=== PATIENT | female | born 1930 | race Asian ===

== ENCOUNTER 2017-06-19 16:01 | Inpatient (IN) | payer OTHER, MEDICARE ==
[2017-06-19 17:04] LABS: ADD MAN DIFF? NO
[2017-06-19 17:12] LABS: WHITE BLOOD COUNT 5.2 10^3/ul (4.8-10.8)
[2017-06-19 17:12] LABS: BASOPHILS % 0.4 % (0.0-2.0); EOSINOPHILS # 0.1 10^3/ul (0.0-0.5); EOSINOPHILS % 2.3 % (0.0-7.0); HEMATOCRIT 25.5 % (37.0-47.0); HEMOGLOBIN 8.2 g/dl (12.0-16.0); LYMPHOCYTES # 0.7 10^3/ul (0.8-2.9); LYMPHOCYTES % 14.1 % (15.0-51.0); MEAN CORPUSCULAR HEMOGLOBIN 31.2 pg (29.0-33.0); MEAN CORPUSCULAR HGB CONC 32.2 g/dl (32.0-37.0); MEAN PLATELET VOLUME 9.1 fl (7.4-10.4); MONOCYTE # 0.8 10^3/ul (0.3-0.9); MONOCYTES % 15.3 % (0.0-11.0); NEUTROPHIL # 3.5 10^3/ul (1.6-7.5); NEUTROPHILS % 67.5 % (39.0-77.0); PLATELET COUNT 230 10^3/UL (140-415); RED BLOOD COUNT 2.63 10^6/ul (4.20-5.40); RED CELL DISTRIBUTION WIDTH 17.3 % (11.5-14.5)
[2017-06-19 17:32] LABS: ANION GAP 14 (8-16); BLOOD UREA NITROGEN 29 mg/dl (7-20); CALCIUM 8.6 mg/dl (8.4-10.2); CARBON DIOXIDE 19 mmol/L (21-31); CHLORIDE 107 mmol/L (97-110); CREATININE 2.99 mg/dl (0.44-1.00); GLUCOSE 107 mg/dl (70-220); POTASSIUM 5.1 mmol/L (3.5-5.1); SODIUM 135 mmol/L (135-144)
[2017-06-19 17:44] LABS: B-TYPE NATRIURETIC PEPTIDE 12400 PG/ML (0-450)
[2017-06-19 17:49] LABS: TROPONIN-I 0.212 ng/ml (0.00-0.12)
[2017-06-19 17:57] LABS: ADD UMIC YES; UR ASCORBIC ACID NEGATIVE (NEGATIVE); UR BACTERIA FEW /HPF (NONE SEEN); UR BILIRUBIN (Dip) NEGATIVE (NEGATIVE); UR BLOOD (Dip) NEGATIVE (NEGATIVE); UR CLARITY CLEAR (CLEAR); UR COLOR YELLOW (YELLOW); UR GLUCOSE (Dip) NEGATIVE (NEGATIVE); UR KETONES (Dip) NEGATIVE (NEGATIVE); UR LEUKOCYTE ESTERASE (Dip) NEGATIVE Leu/ul (NEGATIVE); UR NITRITE (Dip) NEGATIVE (NEGATIVE); UR RBC 1 /HPF (0-5); UR SPECIFIC GRAVITY (Dip) 1.009 (1.003-1.030); UR SQUAMOUS EPITHELIAL CELL FEW /HPF (FEW); UR TOTAL PROTEIN (Dip) 2+ mg/dl (NEGATIVE); UR UROBILINOGEN (Dip) NEGATIVE (NEGATIVE); UR WBC 1 /HPF (0-5)
[2017-06-19] MEDS: IPRATROPIUM (NEB) 0.5 MG/2.5 ML AMP HHN (18:04)
[2017-06-19] MEDS: ALBUTEROL 0.083% (NEB) 2.5 MG/3 ML AMP HHN (18:04)
[2017-06-19] MEDS: ASPIRIN 81 MG TAB PO (18:12)
[2017-06-19] MEDS: HEPARIN 1000 UNITS/ML 10 ML INJ IV (18:13)
[2017-06-19] MEDS: FUROSEMIDE 40 MG INJ IV ×2 (18:14→23:48)
[2017-06-19] MEDS: HEPARIN 25000 UNITS/250 ML 250 ML IV (18:20)
[2017-06-19] MEDS ORDERED: ONDANSETRON 4 MG INJ IV (19:00)
[2017-06-19] MEDS: OXYCODONE/ACETAMINOPHEN (5/325) TAB PO (19:30)
[2017-06-19] MEDS: DICLOFENAC SODIUM 1% GEL 100 GM TUBE TP (19:30)
[2017-06-19] MEDS: BISACODYL 10 MG SUPP PR (19:30)
[2017-06-19] MEDS ORDERED: NITROGLYCERIN (SL) 0.4 MG TAB SL (19:30)
[2017-06-19] MEDS: GABAPENTIN 300 MG CAP PO (21:00)
[2017-06-19] MEDS: ATORVASTATIN 10 MG TAB PO (21:00)
[2017-06-19] MEDS: DOCUSATE SODIUM 100 MG CAP PO (21:00)
[2017-06-19] MEDS: PRAMIPEXOLE 0.25 MG TAB PO (21:00)
[2017-06-19] MEDS: SOD CHLORIDE 0.9% 250 ML IV (21:10)
[2017-06-19 23:35] LABS: CREATINE KINASE 304 IU/L (23-200)
[2017-06-19 23:48] LABS: CK-MB 2.96 ng/ml (0.0-2.4)
[2017-06-19 23:52] LABS: TROPONIN-I 0.158 ng/ml (0.00-0.12)
[2017-06-20] MEDS: OXYCODONE/ACETAMINOPHEN (5/325) TAB PO ×5 (01:30→21:00)
[2017-06-20] MEDS: ALBUTEROL/IPRATROPIUM (NEB) 3 ML AMP NEB ×2 (04:40→10:18)
[2017-06-20] MEDS: FUROSEMIDE 40 MG INJ IV ×2 (06:33→17:28)
[2017-06-20] MEDS: TAMSULOSIN (SR) 0.4 MG CAP PO (07:52)
[2017-06-20] MEDS: ASPIRIN (EC) 325 MG TAB PO (08:54)
[2017-06-20] MEDS: FERROUS SULFATE (EC) 325 MG TAB PO (08:55)
[2017-06-20] MEDS: ALLOPURINOL 100 MG TAB PO (08:55)
[2017-06-20] MEDS: PANTOPRAZOLE (EC) 40 MG TAB PO (08:55)
[2017-06-20] MEDS: FISH OIL 1,000 MG CAP PO (08:55)
[2017-06-20] MEDS: DOCUSATE SODIUM 100 MG CAP PO ×2 (08:55→20:59)
[2017-06-20 09:25] LABS: ADD MAN DIFF? NO
[2017-06-20 09:31] LABS: WHITE BLOOD COUNT 5.3 10^3/ul (4.8-10.8)
[2017-06-20 09:31] LABS: BASOPHILS % 0.6 % (0.0-2.0); EOSINOPHILS # 0.4 10^3/ul (0.0-0.5); HEMATOCRIT 27.7 % (37.0-47.0); HEMOGLOBIN 8.7 g/dl (12.0-16.0); LYMPHOCYTES # 1.1 10^3/ul (0.8-2.9); MEAN CORPUSCULAR HEMOGLOBIN 31.3 pg (29.0-33.0); MEAN CORPUSCULAR HGB CONC 31.4 g/dl (32.0-37.0); MEAN CORPUSCULAR VOLUME 99.6 fl (82.0-101.0); MEAN PLATELET VOLUME 8.9 fl (7.4-10.4); MONOCYTE # 0.9 10^3/ul (0.3-0.9); MONOCYTES % 16.4 % (0.0-11.0); NEUTROPHIL # 2.9 10^3/ul (1.6-7.5); NEUTROPHILS % 54.8 % (39.0-77.0); PLATELET COUNT 216 10^3/UL (140-415); RED BLOOD COUNT 2.78 10^6/ul (4.20-5.40); RED CELL DISTRIBUTION WIDTH 17.5 % (11.5-14.5)
[2017-06-20 09:51] LABS: ALANINE AMINOTRANSFERASE 122 IU/L (13-69); ALBUMIN 3.7 g/dl (3.3-4.9); ALBUMIN/GLOBULIN RATIO 1.48; ALKALINE PHOSPHATASE 91 IU/L (42-121); ANION GAP 18 (8-16); ASPARTATE AMINO TRANSFERASE 135 IU/L (15-46); BLOOD UREA NITROGEN 31 mg/dl (7-20); CALCIUM 8.8 mg/dl (8.4-10.2); CARBON DIOXIDE 19 mmol/L (21-31); CHLORIDE 107 mmol/L (97-110); CREATININE 3.31 mg/dl (0.44-1.00); GLUCOSE 93 mg/dl (70-220); POTASSIUM 4.9 mmol/L (3.5-5.1); SODIUM 139 mmol/L (135-144); TOTAL PROTEIN 6.2 g/dl (6.1-8.1)
[2017-06-20 09:52] LABS: CREATINE KINASE 339 IU/L (23-200)
[2017-06-20 10:03] LABS: CK INDEX 1.2; CK-MB 4.01 ng/ml (0.0-2.4); TROPONIN-I 0.095 ng/ml (0.00-0.12)
[2017-06-20 10:30] LABS: CHOL/HDL RATIO 1.6 RATIO; HDL CHOLESTEROL 76 mg/dl (33-92); LDL CHOLESTEROL,CALCULATED 41 mg/dl; TRIGLYCERIDES 54 mg/dl (0-149)
[2017-06-20 10:30] LABS: CHOLESTEROL 128 mg/dl (100-200)
[2017-06-20] MEDS: DICLOFENAC SODIUM 1% GEL 100 GM TUBE TP (11:52)
[2017-06-20] MEDS ORDERED: traMADol 50 MG TAB PO (13:00)
[2017-06-20] MEDS: EPOETIN 10000 UNITS/1 ML INJ (ESRD) SC (13:17)
[2017-06-20] MEDS: ALBUTEROL/IPRATROPIUM (NEB) 3 ML AMP HHN ×2 (14:07→20:04)
[2017-06-20] MEDS: ATORVASTATIN 10 MG TAB PO (20:59)
[2017-06-20] MEDS: GABAPENTIN 300 MG CAP PO (20:59)
[2017-06-20] MEDS: PRAMIPEXOLE 0.25 MG TAB PO (20:59)
[2017-06-21 05:16] LABS: ADD MAN DIFF? NO
[2017-06-21 05:18] LABS: WHITE BLOOD COUNT 10.4 10^3/ul (4.8-10.8)
[2017-06-21 05:18] LABS: BASOPHILS % 0.2 % (0.0-2.0); EOSINOPHILS # 0.3 10^3/ul (0.0-0.5); EOSINOPHILS % 2.4 % (0.0-7.0); HEMATOCRIT 29.6 % (37.0-47.0); HEMOGLOBIN 9.3 g/dl (12.0-16.0); LYMPHOCYTES # 1.2 10^3/ul (0.8-2.9); LYMPHOCYTES % 11.9 % (15.0-51.0); MEAN CORPUSCULAR HEMOGLOBIN 30.9 pg (29.0-33.0); MEAN CORPUSCULAR HGB CONC 31.4 g/dl (32.0-37.0); MEAN CORPUSCULAR VOLUME 98.3 fl (82.0-101.0); MEAN PLATELET VOLUME 8.7 fl (7.4-10.4); MONOCYTE # 0.9 10^3/ul (0.3-0.9); MONOCYTES % 9.1 % (0.0-11.0); NEUTROPHIL # 7.9 10^3/ul (1.6-7.5); NEUTROPHILS % 76.1 % (39.0-77.0); PLATELET COUNT 250 10^3/UL (140-415); RED BLOOD COUNT 3.01 10^6/ul (4.20-5.40); RED CELL DISTRIBUTION WIDTH 17.3 % (11.5-14.5)
[2017-06-21 06:01] LABS: ANION GAP 20 (8-16); BLOOD UREA NITROGEN 36 mg/dl (7-20); CALCIUM 8.6 mg/dl (8.4-10.2); CARBON DIOXIDE 20 mmol/L (21-31); CHLORIDE 105 mmol/L (97-110); CREATININE 3.55 mg/dl (0.44-1.00); GLUCOSE 95 mg/dl (70-220); POTASSIUM 5.4 mmol/L (3.5-5.1); SODIUM 140 mmol/L (135-144)
[2017-06-21] MEDS: LEVOTHYROXINE 50 MCG TAB PO (06:02)
[2017-06-21] MEDS: FUROSEMIDE 40 MG INJ IV (06:02)
[2017-06-21] MEDS: ALBUTEROL/IPRATROPIUM (NEB) 3 ML AMP HHN ×3 (07:58→19:44)
[2017-06-21] MEDS: TAMSULOSIN (SR) 0.4 MG CAP PO (08:30)
[2017-06-21] MEDS: FERROUS SULFATE (EC) 325 MG TAB PO (08:38)
[2017-06-21] MEDS: FISH OIL 1,000 MG CAP PO (08:38)
[2017-06-21] MEDS: ALLOPURINOL 100 MG TAB PO ×2 (08:38→09:00)
[2017-06-21] MEDS: DOCUSATE SODIUM 100 MG CAP PO ×2 (08:38→20:29)
[2017-06-21] MEDS: ASPIRIN (EC) 325 MG TAB PO (08:38)
[2017-06-21] MEDS: PANTOPRAZOLE (EC) 40 MG TAB PO (08:38)
[2017-06-21] MEDS: OXYCODONE/ACETAMINOPHEN (5/325) TAB PO ×4 (08:39→20:28)
[2017-06-21 08:47] LABS: CREATINE KINASE 252 IU/L (23-200)
[2017-06-21 08:59] LABS: CK INDEX 1.2; CK-MB 2.99 ng/ml (0.0-2.4); TROPONIN-I 0.072 ng/ml (0.00-0.12)
[2017-06-21] MEDS ORDERED: FUROSEMIDE 40 MG INJ IV (09:00)
[2017-06-21] MEDS: NA POLYST SULFON 15 GM/60 ML BTL PR (09:42)
[2017-06-21] MEDS: LACTULOSE 30ML CUP PO (13:40)
[2017-06-21] MEDS: NITROGLYCERIN (SL) 0.4 MG TAB SL (18:01)
[2017-06-21 19:13] LABS: ANION GAP 19 (8-16); BLOOD UREA NITROGEN 38 mg/dl (7-20); CALCIUM 8.4 mg/dl (8.4-10.2); CARBON DIOXIDE 21 mmol/L (21-31); CHLORIDE 104 mmol/L (97-110); CREATININE 3.56 mg/dl (0.44-1.00); GLUCOSE 104 mg/dl (70-220); POTASSIUM 4.4 mmol/L (3.5-5.1); SODIUM 140 mmol/L (135-144)
[2017-06-21] MEDS: BISACODYL 10 MG SUPP PR (19:30)
[2017-06-21] MEDS: PRAMIPEXOLE 0.25 MG TAB PO (20:28)
[2017-06-21] MEDS: GABAPENTIN 300 MG CAP PO (20:29)
[2017-06-21] MEDS: ATORVASTATIN 10 MG TAB PO (20:29)
[2017-06-22] MEDS: OXYCODONE/ACETAMINOPHEN (5/325) TAB PO ×5 (01:30→20:55)
[2017-06-22] MEDS: LEVOTHYROXINE 50 MCG TAB PO (06:09)
[2017-06-22] MEDS ORDERED: VITAMIN A & D 5 GM OINT PACKET TOP (07:38)
[2017-06-22] MEDS: FERROUS SULFATE (EC) 325 MG TAB PO (09:12)
[2017-06-22] MEDS: ASPIRIN (EC) 325 MG TAB PO (09:12)
[2017-06-22] MEDS: TAMSULOSIN (SR) 0.4 MG CAP PO (09:12)
[2017-06-22] MEDS: DOCUSATE SODIUM 100 MG CAP PO ×2 (09:12→20:40)
[2017-06-22] MEDS: ALLOPURINOL 100 MG TAB PO (09:13)
[2017-06-22] MEDS: FISH OIL 1,000 MG CAP PO (09:13)
[2017-06-22] MEDS: PANTOPRAZOLE (EC) 40 MG TAB PO (09:13)
[2017-06-22] MEDS: ALBUTEROL/IPRATROPIUM (NEB) 3 ML AMP HHN ×3 (09:34→19:46)
[2017-06-22] MEDS: MUPIROCIN 2% 22 GM OINT TOP ×2 (14:40→20:39)
[2017-06-22] MEDS: ACETAMINOPHEN 325 MG TAB PO (19:51)
[2017-06-22] MEDS: GABAPENTIN 300 MG CAP PO (20:39)
[2017-06-22] MEDS: PRAMIPEXOLE 0.25 MG TAB PO (20:39)
[2017-06-22] MEDS: ATORVASTATIN 10 MG TAB PO (20:40)
[2017-06-22] MEDS: METOPROLOL 25 MG TAB PO (20:42)
[2017-06-22] MEDS: GUAIFENESIN/DM 5ML CUP PO (20:56)
[2017-06-23] MEDS: LEVOTHYROXINE 50 MCG TAB PO (05:38)
[2017-06-23 08:06] LABS: ADD MAN DIFF? NO
[2017-06-23 08:12] LABS: BASOPHILS % 0.1 % (0.0-2.0); EOSINOPHILS # 0.3 10^3/ul (0.0-0.5); EOSINOPHILS % 3.9 % (0.0-7.0); HEMOGLOBIN 9.3 g/dl (12.0-16.0); LYMPHOCYTES # 1.1 10^3/ul (0.8-2.9); MEAN CORPUSCULAR HEMOGLOBIN 30.8 pg (29.0-33.0); MEAN CORPUSCULAR HGB CONC 32.1 g/dl (32.0-37.0); MEAN PLATELET VOLUME 9.1 fl (7.4-10.4); MONOCYTES % 13.8 % (0.0-11.0); NEUTROPHIL # 4.6 10^3/ul (1.6-7.5); NEUTROPHILS % 65.8 % (39.0-77.0); PLATELET COUNT 241 10^3/UL (140-415); RED BLOOD COUNT 3.02 10^6/ul (4.20-5.40); RED CELL DISTRIBUTION WIDTH 16.5 % (11.5-14.5)
[2017-06-23 08:12] LABS: WHITE BLOOD COUNT 6.9 10^3/ul (4.8-10.8)
[2017-06-23] MEDS: DOCUSATE SODIUM 100 MG CAP PO ×2 (08:33→21:33)
[2017-06-23] MEDS: MUPIROCIN 2% 22 GM OINT TOP ×2 (08:33→21:00)
[2017-06-23] MEDS: OXYCODONE/ACETAMINOPHEN (5/325) TAB PO ×3 (08:33→21:33)
[2017-06-23] MEDS: PANTOPRAZOLE (EC) 40 MG TAB PO (08:33)
[2017-06-23] MEDS: TAMSULOSIN (SR) 0.4 MG CAP PO (08:34)
[2017-06-23] MEDS: ASPIRIN (EC) 325 MG TAB PO (08:34)
[2017-06-23] MEDS: FERROUS SULFATE (EC) 325 MG TAB PO (08:34)
[2017-06-23] MEDS: FISH OIL 1,000 MG CAP PO (08:34)
[2017-06-23] MEDS: ALLOPURINOL 100 MG TAB PO (08:34)
[2017-06-23] MEDS: METOPROLOL 25 MG TAB PO ×2 (08:34→21:34)
[2017-06-23] MEDS: GUAIFENESIN/DM 5ML CUP PO ×2 (08:39→21:34)
[2017-06-23 08:46] LABS: ANION GAP 18 (8-16); BLOOD UREA NITROGEN 36 mg/dl (7-20); CALCIUM 8.5 mg/dl (8.4-10.2); CARBON DIOXIDE 19 mmol/L (21-31); CHLORIDE 105 mmol/L (97-110); CREATININE 3.19 mg/dl (0.44-1.00); GLUCOSE 98 mg/dl (70-220); POTASSIUM 4.1 mmol/L (3.5-5.1); SODIUM 138 mmol/L (135-144)
[2017-06-23] MEDS: ALBUTEROL/IPRATROPIUM (NEB) 3 ML AMP HHN ×3 (08:52→19:38)
[2017-06-23] MEDS: BISACODYL 10 MG SUPP PR (19:30)
[2017-06-23] MEDS ORDERED: INFLUENZA VIRUS VACCINE 0.5 ML SYG IM* (20:00)
[2017-06-23] MEDS: PRAMIPEXOLE 0.25 MG TAB PO (21:33)
[2017-06-23] MEDS: GABAPENTIN 300 MG CAP PO (21:33)
[2017-06-23] MEDS: ATORVASTATIN 10 MG TAB PO (21:33)
[2017-06-24] MEDS: OXYCODONE/ACETAMINOPHEN (5/325) TAB PO ×4 (01:30→20:45)
[2017-06-24] MEDS: LEVOTHYROXINE 50 MCG TAB PO (05:51)
[2017-06-24 07:55] LABS: ADD MAN DIFF? NO
[2017-06-24 08:13] LABS: WHITE BLOOD COUNT 6.9 10^3/ul (4.8-10.8)
[2017-06-24 08:13] LABS: BASOPHILS % 0.4 % (0.0-2.0); EOSINOPHILS # 0.3 10^3/ul (0.0-0.5); EOSINOPHILS % 4.1 % (0.0-7.0); HEMATOCRIT 28.2 % (37.0-47.0); LYMPHOCYTES # 1.3 10^3/ul (0.8-2.9); LYMPHOCYTES % 19.5 % (15.0-51.0); MEAN CORPUSCULAR HEMOGLOBIN 30.8 pg (29.0-33.0); MEAN CORPUSCULAR HGB CONC 31.9 g/dl (32.0-37.0); MEAN CORPUSCULAR VOLUME 96.6 fl (82.0-101.0); MEAN PLATELET VOLUME 9.1 fl (7.4-10.4); MONOCYTE # 0.8 10^3/ul (0.3-0.9); MONOCYTES % 12.2 % (0.0-11.0); NEUTROPHIL # 4.4 10^3/ul (1.6-7.5); NEUTROPHILS % 63.5 % (39.0-77.0); PLATELET COUNT 230 10^3/UL (140-415); RED BLOOD COUNT 2.92 10^6/ul (4.20-5.40); RED CELL DISTRIBUTION WIDTH 16.4 % (11.5-14.5)
[2017-06-24 08:18] LABS: ANION GAP 16 (8-16); BLOOD UREA NITROGEN 35 mg/dl (7-20); CALCIUM 8.5 mg/dl (8.4-10.2); CARBON DIOXIDE 21 mmol/L (21-31); CHLORIDE 109 mmol/L (97-110); CREATININE 3.02 mg/dl (0.44-1.00); GLUCOSE 90 mg/dl (70-220); POTASSIUM 3.9 mmol/L (3.5-5.1); SODIUM 142 mmol/L (135-144)
[2017-06-24] MEDS: ALBUTEROL/IPRATROPIUM (NEB) 3 ML AMP HHN ×3 (08:30→20:04)
[2017-06-24] MEDS: METOPROLOL 25 MG TAB PO ×2 (08:40→20:46)
[2017-06-24] MEDS: DOCUSATE SODIUM 100 MG CAP PO ×2 (08:41→20:45)
[2017-06-24] MEDS: FERROUS SULFATE (EC) 325 MG TAB PO (08:41)
[2017-06-24] MEDS: ALLOPURINOL 100 MG TAB PO (08:41)
[2017-06-24] MEDS: PANTOPRAZOLE (EC) 40 MG TAB PO (08:41)
[2017-06-24] MEDS: ASPIRIN (EC) 325 MG TAB PO (08:41)
[2017-06-24] MEDS: FISH OIL 1,000 MG CAP PO (08:42)
[2017-06-24] MEDS: TAMSULOSIN (SR) 0.4 MG CAP PO (08:42)
[2017-06-24] MEDS: INFLUENZA VIRUS VACCINE 0.5 ML (DISPENSING) IM* (08:43)
[2017-06-24] MEDS: MUPIROCIN 2% 22 GM OINT TOP ×2 (08:44→20:49)
[2017-06-24] MEDS: REGADENOSON 0.4 MG/5 ML SYG ×2 (10:18→10:50)
[2017-06-24] MEDS: GUAIFENESIN/DM 5ML CUP PO (18:01)
[2017-06-24] MEDS: ATORVASTATIN 10 MG TAB PO (20:45)
[2017-06-24] MEDS: GABAPENTIN 300 MG CAP PO (20:45)
[2017-06-24] MEDS: PRAMIPEXOLE 0.25 MG TAB PO (20:46)
[2017-06-25] MEDS: OXYCODONE/ACETAMINOPHEN (5/325) TAB PO ×5 (01:30→20:10)
[2017-06-25] MEDS: LEVOTHYROXINE 50 MCG TAB PO (06:24)
[2017-06-25] MEDS: GUAIFENESIN/DM 5ML CUP PO ×2 (06:31→17:23)
[2017-06-25] MEDS: ALBUTEROL/IPRATROPIUM (NEB) 3 ML AMP HHN ×3 (07:34→20:46)
[2017-06-25 08:31] LABS: ADD MAN DIFF? NO
[2017-06-25 08:36] LABS: BASOPHILS % 0.3 % (0.0-2.0); EOSINOPHILS # 0.4 10^3/ul (0.0-0.5); EOSINOPHILS % 5.9 % (0.0-7.0); HEMATOCRIT 28.7 % (37.0-47.0); HEMOGLOBIN 8.9 g/dl (12.0-16.0); LYMPHOCYTES # 1.3 10^3/ul (0.8-2.9); LYMPHOCYTES % 19.9 % (15.0-51.0); MEAN CORPUSCULAR HEMOGLOBIN 30.6 pg (29.0-33.0); MEAN CORPUSCULAR VOLUME 98.6 fl (82.0-101.0); MEAN PLATELET VOLUME 9.1 fl (7.4-10.4); MONOCYTE # 0.7 10^3/ul (0.3-0.9); MONOCYTES % 10.6 % (0.0-11.0); PLATELET COUNT 236 10^3/UL (140-415); RED BLOOD COUNT 2.91 10^6/ul (4.20-5.40); RED CELL DISTRIBUTION WIDTH 16.6 % (11.5-14.5)
[2017-06-25 08:36] LABS: WHITE BLOOD COUNT 6.3 10^3/ul (4.8-10.8)
[2017-06-25] MEDS: ASPIRIN (EC) 325 MG TAB PO (08:39)
[2017-06-25] MEDS: FISH OIL 1,000 MG CAP PO (08:39)
[2017-06-25] MEDS: TAMSULOSIN (SR) 0.4 MG CAP PO (08:40)
[2017-06-25] MEDS: DOCUSATE SODIUM 100 MG CAP PO ×2 (08:40→20:09)
[2017-06-25] MEDS: PANTOPRAZOLE (EC) 40 MG TAB PO (08:40)
[2017-06-25] MEDS: FERROUS SULFATE (EC) 325 MG TAB PO (08:40)
[2017-06-25] MEDS: MUPIROCIN 2% 22 GM OINT TOP ×2 (08:41→20:10)
[2017-06-25] MEDS: ALLOPURINOL 100 MG TAB PO (08:41)
[2017-06-25] MEDS: METOPROLOL 25 MG TAB PO ×2 (08:42→20:09)
[2017-06-25 08:56] LABS: ANION GAP 15 (8-16); BLOOD UREA NITROGEN 33 mg/dl (7-20); CALCIUM 8.7 mg/dl (8.4-10.2); CARBON DIOXIDE 22 mmol/L (21-31); CHLORIDE 111 mmol/L (97-110); CREATININE 3.04 mg/dl (0.44-1.00); GLUCOSE 101 mg/dl (70-220); SODIUM 144 mmol/L (135-144)
[2017-06-25] MEDS: EPOETIN ALFA (NESRD) 3,000 UNITS/ML VIAL SC (16:47)
[2017-06-25] MEDS: ATORVASTATIN 10 MG TAB PO (20:09)
[2017-06-25] MEDS: PRAMIPEXOLE 0.25 MG TAB PO (20:10)
[2017-06-25] MEDS: BISACODYL 10 MG SUPP PR (20:10)
[2017-06-25] MEDS: GABAPENTIN 300 MG CAP PO (20:10)
[2017-06-26] MEDS: OXYCODONE/ACETAMINOPHEN (5/325) TAB PO ×4 (01:30→20:07)
[2017-06-26] MEDS: ONDANSETRON 4 MG INJ IV (06:17)
[2017-06-26] MEDS: LEVOTHYROXINE 50 MCG TAB PO (06:17)
[2017-06-26 07:24] LABS: ADD MAN DIFF? NO
[2017-06-26 07:28] LABS: BASOPHILS % 0.3 % (0.0-2.0); EOSINOPHILS # 0.4 10^3/ul (0.0-0.5); EOSINOPHILS % 6.4 % (0.0-7.0); HEMATOCRIT 27.6 % (37.0-47.0); HEMOGLOBIN 8.8 g/dl (12.0-16.0); LYMPHOCYTES # 1.3 10^3/ul (0.8-2.9); LYMPHOCYTES % 21.8 % (15.0-51.0); MEAN CORPUSCULAR HEMOGLOBIN 30.9 pg (29.0-33.0); MEAN CORPUSCULAR HGB CONC 31.9 g/dl (32.0-37.0); MEAN CORPUSCULAR VOLUME 96.8 fl (82.0-101.0); MONOCYTE # 0.7 10^3/ul (0.3-0.9); MONOCYTES % 11.7 % (0.0-11.0); NEUTROPHIL # 3.6 10^3/ul (1.6-7.5); NEUTROPHILS % 59.5 % (39.0-77.0); PLATELET COUNT 241 10^3/UL (140-415); RED BLOOD COUNT 2.85 10^6/ul (4.20-5.40); RED CELL DISTRIBUTION WIDTH 16.2 % (11.5-14.5)
[2017-06-26 07:50] LABS: ANION GAP 15 (8-16); BLOOD UREA NITROGEN 33 mg/dl (7-20); CALCIUM 8.6 mg/dl (8.4-10.2); CARBON DIOXIDE 20 mmol/L (21-31); CHLORIDE 110 mmol/L (97-110); CREATININE 2.62 mg/dl (0.44-1.00); GLUCOSE 87 mg/dl (70-220); SODIUM 141 mmol/L (135-144)
[2017-06-26] MEDS: ALBUTEROL/IPRATROPIUM (NEB) 3 ML AMP HHN ×3 (08:13→20:36)
[2017-06-26] MEDS: FISH OIL 1,000 MG CAP PO (08:41)
[2017-06-26] MEDS: ALLOPURINOL 100 MG TAB PO (08:41)
[2017-06-26] MEDS: TAMSULOSIN (SR) 0.4 MG CAP PO (08:41)
[2017-06-26] MEDS: ASPIRIN (EC) 325 MG TAB PO (08:41)
[2017-06-26] MEDS: PANTOPRAZOLE (EC) 40 MG TAB PO (08:42)
[2017-06-26] MEDS: DOCUSATE SODIUM 100 MG CAP PO ×2 (08:42→20:08)
[2017-06-26] MEDS: FERROUS SULFATE (EC) 325 MG TAB PO (08:42)
[2017-06-26] MEDS: METOPROLOL 25 MG TAB PO ×2 (08:43→20:08)
[2017-06-26] MEDS: MUPIROCIN 2% 22 GM OINT TOP ×2 (08:44→20:09)
[2017-06-26] MEDS: GUAIFENESIN/DM 5ML CUP PO (08:48)
[2017-06-26 17:44] LABS: COLLECTION PERIOD 24 hrs
[2017-06-26 18:35] LABS: VOLUME 650 mls
[2017-06-26 18:37] LABS: 24HR URINE TOTAL PROTEIN > 600.0 mg/24hrs (42.0-225.0)
[2017-06-26] MEDS: PRAMIPEXOLE 0.25 MG TAB PO (20:07)
[2017-06-26] MEDS: GABAPENTIN 300 MG CAP PO (20:07)
[2017-06-26] MEDS: ATORVASTATIN 10 MG TAB PO (20:07)
[2017-06-27] MEDS: OXYCODONE/ACETAMINOPHEN (5/325) TAB PO ×3 (01:30→13:20)
[2017-06-27] MEDS: LEVOTHYROXINE 50 MCG TAB PO (06:30)
[2017-06-27] MEDS: ALBUTEROL/IPRATROPIUM (NEB) 3 ML AMP HHN ×3 (07:58→20:22)
[2017-06-27] MEDS: PANTOPRAZOLE (EC) 40 MG TAB PO (08:37)
[2017-06-27] MEDS: FISH OIL 1,000 MG CAP PO (08:38)
[2017-06-27] MEDS: FERROUS SULFATE (EC) 325 MG TAB PO (08:38)
[2017-06-27] MEDS: DOCUSATE SODIUM 100 MG CAP PO ×2 (08:40→22:22)
[2017-06-27] MEDS: ALLOPURINOL 100 MG TAB PO (08:40)
[2017-06-27] MEDS: ASPIRIN (EC) 325 MG TAB PO (08:40)
[2017-06-27] MEDS: TAMSULOSIN (SR) 0.4 MG CAP PO (08:40)
[2017-06-27] MEDS: METOPROLOL 25 MG TAB PO ×2 (08:40→22:23)
[2017-06-27] MEDS: MUPIROCIN 2% 22 GM OINT TOP ×2 (08:41→22:24)
[2017-06-27] MEDS ORDERED: OXYCODONE/ACETAMINOPHEN (5/325) TAB PO (15:00)
[2017-06-27] MEDS: BISACODYL 10 MG SUPP PR (18:31)
[2017-06-27] MEDS: GUAIFENESIN/DM 5ML CUP PO ×2 (19:01→23:12)
[2017-06-27] MEDS: ATORVASTATIN 10 MG TAB PO (22:22)
[2017-06-27] MEDS: GABAPENTIN 300 MG CAP PO (22:23)
[2017-06-27] MEDS: PRAMIPEXOLE 0.25 MG TAB PO (22:23)
[2017-06-28] MEDS: GUAIFENESIN/DM 5ML CUP PO ×3 (05:23→20:22)
[2017-06-28] MEDS: LEVOTHYROXINE 50 MCG TAB PO (05:23)
[2017-06-28 06:44] LABS: ADD MAN DIFF? NO
[2017-06-28 06:46] LABS: BASOPHILS % 0.6 % (0.0-2.0); EOSINOPHILS # 0.3 10^3/ul (0.0-0.5); EOSINOPHILS % 6.6 % (0.0-7.0); HEMATOCRIT 27.3 % (37.0-47.0); HEMOGLOBIN 8.6 g/dl (12.0-16.0); LYMPHOCYTES # 1.1 10^3/ul (0.8-2.9); LYMPHOCYTES % 21.9 % (15.0-51.0); MEAN CORPUSCULAR HEMOGLOBIN 30.2 pg (29.0-33.0); MEAN CORPUSCULAR HGB CONC 31.5 g/dl (32.0-37.0); MEAN CORPUSCULAR VOLUME 95.8 fl (82.0-101.0); MONOCYTE # 0.5 10^3/ul (0.3-0.9); MONOCYTES % 10.5 % (0.0-11.0); NEUTROPHILS % 59.6 % (39.0-77.0); PLATELET COUNT 245 10^3/UL (140-415); RED BLOOD COUNT 2.85 10^6/ul (4.20-5.40); RED CELL DISTRIBUTION WIDTH 15.8 % (11.5-14.5)
[2017-06-28 07:07] LABS: ANION GAP 16 (8-16); BLOOD UREA NITROGEN 31 mg/dl (7-20); CALCIUM 8.6 mg/dl (8.4-10.2); CARBON DIOXIDE 19 mmol/L (21-31); CHLORIDE 109 mmol/L (97-110); CREATININE 2.77 mg/dl (0.44-1.00); GLUCOSE 116 mg/dl (70-220); POTASSIUM 4.4 mmol/L (3.5-5.1); SODIUM 140 mmol/L (135-144)
[2017-06-28] MEDS: ALBUTEROL/IPRATROPIUM (NEB) 3 ML AMP HHN ×4 (08:17→20:27)
[2017-06-28] MEDS: ALLOPURINOL 100 MG TAB PO (08:51)
[2017-06-28] MEDS: AMLODIPINE 2.5 MG TAB PO (08:51)
[2017-06-28] MEDS: TAMSULOSIN (SR) 0.4 MG CAP PO (08:51)
[2017-06-28] MEDS: FISH OIL 1,000 MG CAP PO (08:51)
[2017-06-28] MEDS: PANTOPRAZOLE (EC) 40 MG TAB PO (08:52)
[2017-06-28] MEDS: ASPIRIN (EC) 325 MG TAB PO (08:52)
[2017-06-28] MEDS: FUROSEMIDE 20 MG TAB PO (08:53)
[2017-06-28] MEDS: FERROUS SULFATE (EC) 325 MG TAB PO (08:53)
[2017-06-28] MEDS: METOPROLOL 25 MG TAB PO ×2 (09:00→20:22)
[2017-06-28] MEDS: DOCUSATE SODIUM 100 MG CAP PO ×2 (09:04→20:22)
[2017-06-28] MEDS: MUPIROCIN 2% 22 GM OINT TOP ×2 (09:06→20:22)
[2017-06-28] MEDS ORDERED: ALBUTEROL/IPRATROPIUM (NEB) 3 ML AMP HHN (13:30)
[2017-06-28] MEDS ORDERED: hydrALAzine 20 MG INJ IV (17:00)
[2017-06-28] MEDS: BISACODYL 10 MG SUPP PR (17:32)
[2017-06-28] MEDS: EPOETIN ALFA (NESRD) 3,000 UNITS/ML VIAL SC (17:32)
[2017-06-28] MEDS: GABAPENTIN 300 MG CAP PO (20:22)
[2017-06-28] MEDS: PRAMIPEXOLE 0.25 MG TAB PO (20:22)
[2017-06-28] MEDS: ATORVASTATIN 10 MG TAB PO (20:22)
[2017-06-29] MEDS: GUAIFENESIN/DM 5ML CUP PO ×2 (06:12→23:51)
[2017-06-29] MEDS: LEVOTHYROXINE 50 MCG TAB PO (06:12)
[2017-06-29 07:18] LABS: ADD MAN DIFF? NO
[2017-06-29 07:24] LABS: BASOPHILS % 0.4 % (0.0-2.0); EOSINOPHILS # 0.4 10^3/ul (0.0-0.5); EOSINOPHILS % 5.8 % (0.0-7.0); HEMATOCRIT 28.9 % (37.0-47.0); HEMOGLOBIN 9.2 g/dl (12.0-16.0); LYMPHOCYTES # 1.2 10^3/ul (0.8-2.9); LYMPHOCYTES % 16.4 % (15.0-51.0); MEAN CORPUSCULAR HEMOGLOBIN 30.6 pg (29.0-33.0); MEAN CORPUSCULAR HGB CONC 31.8 g/dl (32.0-37.0); MONOCYTE # 0.6 10^3/ul (0.3-0.9); MONOCYTES % 8.1 % (0.0-11.0); NEUTROPHIL # 4.8 10^3/ul (1.6-7.5); NEUTROPHILS % 68.7 % (39.0-77.0); PLATELET COUNT 286 10^3/UL (140-415); RED BLOOD COUNT 3.01 10^6/ul (4.20-5.40); RED CELL DISTRIBUTION WIDTH 15.9 % (11.5-14.5)
[2017-06-29 07:56] LABS: ANION GAP 14 (8-16); BLOOD UREA NITROGEN 32 mg/dl (7-20); CALCIUM 8.9 mg/dl (8.4-10.2); CARBON DIOXIDE 21 mmol/L (21-31); CHLORIDE 107 mmol/L (97-110); CREATININE 2.58 mg/dl (0.44-1.00); GLUCOSE 117 mg/dl (70-220); POTASSIUM 4.2 mmol/L (3.5-5.1); SODIUM 138 mmol/L (135-144)
[2017-06-29] MEDS: FERROUS SULFATE (EC) 325 MG TAB PO (08:24)
[2017-06-29] MEDS: PANTOPRAZOLE (EC) 40 MG TAB PO (08:24)
[2017-06-29] MEDS: FISH OIL 1,000 MG CAP PO (08:24)
[2017-06-29] MEDS: METOPROLOL 25 MG TAB PO ×2 (08:25→21:43)
[2017-06-29] MEDS: AMLODIPINE 2.5 MG TAB PO (08:25)
[2017-06-29] MEDS: ALLOPURINOL 100 MG TAB PO (08:25)
[2017-06-29] MEDS: TAMSULOSIN (SR) 0.4 MG CAP PO (08:25)
[2017-06-29] MEDS: DOCUSATE SODIUM 100 MG CAP PO ×2 (08:25→21:40)
[2017-06-29] MEDS: ASPIRIN (EC) 325 MG TAB PO (08:26)
[2017-06-29] MEDS: MUPIROCIN 2% 22 GM OINT TOP ×2 (08:26→21:44)
[2017-06-29] MEDS: FUROSEMIDE 20 MG TAB PO (08:26)
[2017-06-29 08:32] LABS: CREATININE,URINE RANDOM 29.21 mg/dl (20-320)
[2017-06-29] MEDS: ALBUTEROL/IPRATROPIUM (NEB) 3 ML AMP HHN ×4 (08:48→20:44)
[2017-06-29] MEDS: LEVOFLOXACIN 500MG/D5W (PMX) 100 ML IVPB (17:09)
[2017-06-29] MEDS: GABAPENTIN 300 MG CAP PO (21:41)
[2017-06-29] MEDS: ATORVASTATIN 10 MG TAB PO (21:41)
[2017-06-29] MEDS: PRAMIPEXOLE 0.25 MG TAB PO (21:41)
[2017-06-29] MEDS: BISACODYL 10 MG SUPP PR (23:47)
[2017-06-30] MEDS: LEVOTHYROXINE 50 MCG TAB PO (06:30)
[2017-06-30] MEDS: TAMSULOSIN (SR) 0.4 MG CAP PO (08:15)
[2017-06-30] MEDS: PANTOPRAZOLE (EC) 40 MG TAB PO (08:16)
[2017-06-30] MEDS: FISH OIL 1,000 MG CAP PO (08:16)
[2017-06-30] MEDS: DOCUSATE SODIUM 100 MG CAP PO ×2 (08:16→23:15)
[2017-06-30] MEDS: METOPROLOL 25 MG TAB PO ×2 (08:16→23:17)
[2017-06-30] MEDS: FERROUS SULFATE (EC) 325 MG TAB PO (08:16)
[2017-06-30] MEDS: AMLODIPINE 5 MG TAB PO (08:17)
[2017-06-30] MEDS: FUROSEMIDE 20 MG TAB PO (08:17)
[2017-06-30] MEDS: MUPIROCIN 2% 22 GM OINT TOP ×2 (08:17→23:17)
[2017-06-30] MEDS: ASPIRIN (EC) 325 MG TAB PO (08:17)
[2017-06-30] MEDS: ALLOPURINOL 100 MG TAB PO (08:17)
[2017-06-30 08:36] LABS: ADD MAN DIFF? NO
[2017-06-30 08:46] LABS: BASOPHILS % 0.6 % (0.0-2.0); EOSINOPHILS # 0.3 10^3/ul (0.0-0.5); EOSINOPHILS % 5.8 % (0.0-7.0); HEMATOCRIT 28.4 % (37.0-47.0); HEMATOCRIT 29.2 % (37.0-47.0); LYMPHOCYTES # 1.1 10^3/ul (0.8-2.9); MEAN CORPUSCULAR HEMOGLOBIN 29.9 pg (29.0-33.0); MEAN CORPUSCULAR HGB CONC 31.7 g/dl (32.0-37.0); MEAN CORPUSCULAR VOLUME 94.4 fl (82.0-101.0); MEAN PLATELET VOLUME 9.2 fl (7.4-10.4); MONOCYTE # 0.5 10^3/ul (0.3-0.9); NEUTROPHIL # 3.4 10^3/ul (1.6-7.5); NEUTROPHILS % 63.2 % (39.0-77.0); NUCLEATED RED BLOOD CELLS% 0.4 /100WBC (0.0-0.0); PLATELET COUNT 304 10^3/UL (140-415); RED BLOOD COUNT 3.01 10^6/ul (4.20-5.40); RED CELL DISTRIBUTION WIDTH 15.9 % (11.5-14.5)
[2017-06-30 08:46] LABS: HEMOGLOBIN 9.3 g/dl (12.0-16.0); WHITE BLOOD COUNT 5.3 10^3/ul (4.8-10.8)
[2017-06-30 09:01] LABS: ANION GAP 16 (8-16); BLOOD UREA NITROGEN 29 mg/dl (7-20); CARBON DIOXIDE 21 mmol/L (21-31); CHLORIDE 108 mmol/L (97-110); CREATININE 2.68 mg/dl (0.44-1.00); GLUCOSE 95 mg/dl (70-220); POTASSIUM 4.5 mmol/L (3.5-5.1); SODIUM 140 mmol/L (135-144)
[2017-06-30] MEDS: ALBUTEROL/IPRATROPIUM (NEB) 3 ML AMP HHN ×4 (09:46→21:12)
[2017-06-30] MEDS: GUAIFENESIN/DM 5ML CUP PO ×2 (17:33→23:34)
[2017-06-30] MEDS: EPOETIN ALFA (NESRD) 3,000 UNITS/ML VIAL SC (17:37)
[2017-06-30] MEDS: PRAMIPEXOLE 0.25 MG TAB PO (23:16)
[2017-06-30] MEDS: ATORVASTATIN 10 MG TAB PO (23:16)
[2017-06-30] MEDS: GABAPENTIN 300 MG CAP PO (23:16)
[2017-07-01 05:54] LABS: ADD MAN DIFF? NO
[2017-07-01] MEDS: LEVOTHYROXINE 50 MCG TAB PO (05:59)
[2017-07-01 06:01] LABS: BASOPHILS % 0.6 % (0.0-2.0); EOSINOPHILS # 0.3 10^3/ul (0.0-0.5); EOSINOPHILS % 5.9 % (0.0-7.0); HEMOGLOBIN 8.8 g/dl (12.0-16.0); LYMPHOCYTES # 1.2 10^3/ul (0.8-2.9); LYMPHOCYTES % 22.1 % (15.0-51.0); MEAN CORPUSCULAR HEMOGLOBIN 30.7 pg (29.0-33.0); MEAN CORPUSCULAR HGB CONC 32.6 g/dl (32.0-37.0); MEAN CORPUSCULAR VOLUME 94.1 fl (82.0-101.0); MEAN PLATELET VOLUME 9.1 fl (7.4-10.4); MONOCYTE # 0.6 10^3/ul (0.3-0.9); MONOCYTES % 11.4 % (0.0-11.0); NEUTROPHIL # 3.2 10^3/ul (1.6-7.5); NEUTROPHILS % 59.3 % (39.0-77.0); PLATELET COUNT 285 10^3/UL (140-415); RED BLOOD COUNT 2.87 10^6/ul (4.20-5.40); RED CELL DISTRIBUTION WIDTH 15.8 % (11.5-14.5)
[2017-07-01 06:01] LABS: WHITE BLOOD COUNT 5.4 10^3/ul (4.8-10.8)
[2017-07-01 06:27] LABS: ANION GAP 14 (8-16); BLOOD UREA NITROGEN 30 mg/dl (7-20); CALCIUM 8.7 mg/dl (8.4-10.2); CARBON DIOXIDE 22 mmol/L (21-31); CHLORIDE 105 mmol/L (97-110); CREATININE 2.59 mg/dl (0.44-1.00); GLUCOSE 97 mg/dl (70-220); POTASSIUM 4.5 mmol/L (3.5-5.1); SODIUM 136 mmol/L (135-144)
[2017-07-01] MEDS: DOCUSATE SODIUM 100 MG CAP PO (08:25)
[2017-07-01] MEDS: FERROUS SULFATE (EC) 325 MG TAB PO (08:25)
[2017-07-01] MEDS: FISH OIL 1,000 MG CAP PO (08:25)
[2017-07-01] MEDS: ASPIRIN (EC) 325 MG TAB PO (08:25)
[2017-07-01] MEDS: TAMSULOSIN (SR) 0.4 MG CAP PO (08:25)
[2017-07-01] MEDS: METOPROLOL 25 MG TAB PO (08:26)
[2017-07-01] MEDS: FUROSEMIDE 20 MG TAB PO (08:26)
[2017-07-01] MEDS: PANTOPRAZOLE (EC) 40 MG TAB PO (08:27)
[2017-07-01] MEDS: ALLOPURINOL 100 MG TAB PO (08:27)
[2017-07-01] MEDS: AMLODIPINE 5 MG TAB PO (08:27)
[2017-07-01] MEDS: MUPIROCIN 2% 22 GM OINT TOP (08:27)
[2017-07-01] MEDS: ALBUTEROL/IPRATROPIUM (NEB) 3 ML AMP HHN ×3 (09:47→16:55)
[2017-07-01] MEDS: LEVOFLOXACIN 500MG/D5W (PMX) 100 ML IVPB (17:40)
[2017-07-01] MEDS ORDERED: METOPROLOL 25 MG TAB PO (21:00)
[2017-07-02] MEDS ORDERED: FUROSEMIDE 40 MG TAB PO (09:00)
[2017-07-03] MEDS ORDERED: LEVOFLOXACIN 500 MG TAB PO (16:00)
== END 2017-07-01 20:06 | DRG 280 ==
LOC: ICU 18:53 → TEL 06-22 08:23 → E/R 16:01 → TEL 06-21 22:21
DX: I21.4 Non-ST elevation (NSTEMI) myocardial infarction (principal); I50.31 Acute diastolic (congestive) heart failure; N18.4 Chronic kidney disease, stage 4 (severe); N17.9 Acute kidney failure, unspecified; I13.0 Hypertensive heart and chronic kidney disease with heart failure and stage 1 through stage 4 chronic kidney disease, or unspecified chronic kidney disease; J44.9 Chronic obstructive pulmonary disease, unspecified; E11.22 Type 2 diabetes mellitus with diabetic chronic kidney disease; E87.5 Hyperkalemia; I35.0 Nonrheumatic aortic (valve) stenosis; D63.1 Anemia in chronic kidney disease; F32.9 Major depressive disorder, single episode, unspecified; M10.9 Gout, unspecified; E03.9 Hypothyroidism, unspecified; E78.5 Hyperlipidemia, unspecified; M75.102 Unspecified rotator cuff tear or rupture of left shoulder, not specified as traumatic; M75.101 Unspecified rotator cuff tear or rupture of right shoulder, not specified as traumatic; E66.9 Obesity, unspecified; Z68.32 Body mass index [BMI] 32.0-32.9, adult; Z79.82 Long term (current) use of aspirin; Z90.49 Acquired absence of other specified parts of digestive tract
CPT/HCPCS: 36415; 71045; 73020-50; 76775; 78452; 80048; 80053; 80061; 81001; 82530; 82550; 82553; 83880; 84155; 84156; 84439; 84443; 84484; 84560; 85014; 85018; 85025; 85730; 87070; 87081; 90686; 93005; 93017; 93306; 94640; 94664; 96374; 96375; 97110; 97116; 97162; 97530; 99285-25

== ENCOUNTER 2018-01-28 23:16 | Inpatient (IN) | payer MEDICARE, OTHER ==
[2018-01-28] MEDS: ALBUTEROL 0.083% (NEB) 2.5 MG/3 ML AMP INH (23:44)
[2018-01-28] MEDS: IPRATROPIUM (NEB) 0.5 MG/2.5 ML AMP INH (23:44)
[2018-01-28 23:51] LABS: ADD MAN DIFF? NO; MODE NASAL CANNULA; MetHgb Venous 0.5 %; Sample Type Blood venous; Site VENOUS LINE; Venous COHb 0.5 %; Venous Fraction OxyHgb 94.7 %; Venous Oxygen Sat 95.7 mmHG (55.0-75.0); Venous Total Hemglobin 12.2 g/dl
[2018-01-28 23:55] LABS: WHITE BLOOD COUNT 6.9 10^3/ul (4.8-10.8)
[2018-01-28 23:55] LABS: BASOPHILS % 0.4 % (0.0-2.0); EOSINOPHILS # 0.3 10^3/ul (0.0-0.5); EOSINOPHILS % 4.6 % (0.0-7.0); HEMATOCRIT 34.6 % (37.0-47.0); HEMOGLOBIN 10.9 g/dl (12.0-16.0); LYMPHOCYTES # 0.9 10^3/ul (0.8-2.9); LYMPHOCYTES % 13.1 % (15.0-51.0); MEAN CORPUSCULAR HGB CONC 31.5 g/dl (32.0-37.0); MEAN CORPUSCULAR VOLUME 95.3 fl (82.0-101.0); MEAN PLATELET VOLUME 9.7 fl (7.4-10.4); MONOCYTE # 0.5 10^3/ul (0.3-0.9); MONOCYTES % 6.6 % (0.0-11.0); NEUTROPHIL # 5.2 10^3/ul (1.6-7.5); NEUTROPHILS % 75.2 % (39.0-77.0); PLATELET COUNT 167 10^3/UL (140-415); RED BLOOD COUNT 3.63 10^6/ul (4.20-5.40); RED CELL DISTRIBUTION WIDTH 14.6 % (11.5-14.5)
[2018-01-29 00:24] LABS: ALANINE AMINOTRANSFERASE 25 IU/L (13-69); ALBUMIN 3.9 g/dl (3.3-4.9); ALBUMIN/GLOBULIN RATIO 1.56; ALKALINE PHOSPHATASE 100 IU/L (42-121); ANION GAP 14 (5-13); ASPARTATE AMINO TRANSFERASE 33 IU/L (15-46); BLOOD UREA NITROGEN 87 mg/dl (7-20); CALCIUM 8.7 mg/dl (8.4-10.2); CARBON DIOXIDE 15 mmol/L (21-31); CHLORIDE 108 mmol/L (97-110); CREATININE 3.51 mg/dl (0.44-1.00); GLUCOSE 139 mg/dl (70-220); SODIUM 137 mmol/L (135-144); TOTAL PROTEIN 6.4 g/dl (6.1-8.1)
[2018-01-29] MEDS ORDERED: SODIUM BICARBONATE (IV ADD) 100 MEQ in DEXTROSE 5% 900 ML IV (00:33)
[2018-01-29 00:35] LABS: B-TYPE NATRIURETIC PEPTIDE 1650 PG/ML (0-450); TROPONIN-I 0.014 ng/ml (0.000-0.120)
[2018-01-29] MEDS: morphine 4 MG/ML VIAL IV (00:48)
[2018-01-29] MEDS: INSULIN REGULAR, HUMAN 100 UNIT/1 ML 3ML VIAL IVP (00:50)
[2018-01-29] MEDS: DEXTROSE 50% 50 ML SYRINGE IV ×2 (00:50→01:30)
[2018-01-29] MEDS: ALBUTEROL 0.5% (NEB) 2.5 MG/0.5 ML AMP INH (00:52)
[2018-01-29] MEDS: NA POLYST SULFON 15 GM/60 ML BTL PO ×2 (00:56→09:48)
[2018-01-29] MEDS ORDERED: ACETAMINOPHEN 325 MG TAB PO (01:00)
[2018-01-29] MEDS ORDERED: ONDANSETRON 4 MG INJ IV (01:00)
[2018-01-29 06:59] LABS: LACTIC ACID 1.3 mmol/L (0.5-2.0)
[2018-01-29 19:04] LABS: ANION GAP 12 (5-13); BLOOD UREA NITROGEN 84 mg/dl (7-20); CALCIUM 8.4 mg/dl (8.4-10.2); CARBON DIOXIDE 19 mmol/L (21-31); CHLORIDE 110 mmol/L (97-110); CREATININE 3.68 mg/dl (0.44-1.00); GLUCOSE 89 mg/dl (70-220); POTASSIUM 4.7 mmol/L (3.5-5.1); SODIUM 141 mmol/L (135-144)
[2018-01-29] MEDS: FUROSEMIDE 20 MG INJ IV (20:51)
[2018-01-30 06:31] LABS: ADD MAN DIFF? NO
[2018-01-30 06:33] LABS: BASOPHILS % 0.2 % (0.0-2.0); EOSINOPHILS # 0.4 10^3/ul (0.0-0.5); EOSINOPHILS % 6.7 % (0.0-7.0); HEMATOCRIT 32.7 % (37.0-47.0); HEMOGLOBIN 10.4 g/dl (12.0-16.0); LYMPHOCYTES # 1.1 10^3/ul (0.8-2.9); LYMPHOCYTES % 17.4 % (15.0-51.0); MEAN CORPUSCULAR HEMOGLOBIN 30.5 pg (29.0-33.0); MEAN CORPUSCULAR HGB CONC 31.8 g/dl (32.0-37.0); MEAN CORPUSCULAR VOLUME 95.9 fl (82.0-101.0); MEAN PLATELET VOLUME 9.8 fl (7.4-10.4); MONOCYTE # 0.7 10^3/ul (0.3-0.9); NEUTROPHIL # 3.9 10^3/ul (1.6-7.5); NEUTROPHILS % 63.4 % (39.0-77.0); PLATELET COUNT 164 10^3/UL (140-415); RED BLOOD COUNT 3.41 10^6/ul (4.20-5.40); RED CELL DISTRIBUTION WIDTH 14.7 % (11.5-14.5)
[2018-01-30 06:33] LABS: WHITE BLOOD COUNT 6.2 10^3/ul (4.8-10.8)
[2018-01-30 07:08] LABS: ANION GAP 13 (5-13); BLOOD UREA NITROGEN 78 mg/dl (7-20); CALCIUM 8.2 mg/dl (8.4-10.2); CARBON DIOXIDE 19 mmol/L (21-31); CHLORIDE 111 mmol/L (97-110); GLUCOSE 82 mg/dl (70-220); SODIUM 143 mmol/L (135-144)
[2018-01-30] MEDS: FUROSEMIDE 20 MG INJ IV ×2 (08:48→20:40)
[2018-01-30] MEDS: ENOXAPARIN 30 MG/0.3 ML SYG SC (08:50)
[2018-01-30] MEDS ORDERED: METOPROLOL 5 MG INJ IV (12:00)
[2018-01-30] MEDS: BISACODYL 10 MG SUPP PR (14:00)
[2018-01-30 14:32] LABS: CREATINE KINASE 193 IU/L (23-200)
[2018-01-30 14:46] LABS: CK INDEX 1.9; CK-MB 3.63 ng/ml (0.0-2.4); TROPONIN-I < 0.012 ng/ml (0.000-0.120)
[2018-01-30 19:39] LABS: CREATINE KINASE 191 IU/L (23-200)
[2018-01-30 19:52] LABS: CK INDEX 1.7; CK-MB 3.27 ng/ml (0.0-2.4); TROPONIN-I 0.015 ng/ml (0.000-0.120)
[2018-01-30] MEDS: PRAMIPEXOLE 0.25 MG TAB PO (20:40)
[2018-01-30] MEDS: ATORVASTATIN 10 MG TAB PO (20:40)
[2018-01-30] MEDS: GABAPENTIN 300 MG CAP PO (20:40)
[2018-01-30] MEDS: AMIODARONE 200 MG TAB PO (20:41)
[2018-01-30] MEDS: DOCUSATE SODIUM 100 MG CAP PO (20:41)
[2018-01-30] MEDS: METOPROLOL 25 MG TAB PO (20:41)
[2018-01-31 01:10] LABS: CREATINE KINASE 176 IU/L (23-200)
[2018-01-31 01:24] LABS: CK INDEX 1.3; CK-MB 2.22 ng/ml (0.0-2.4); TROPONIN-I 0.029 ng/ml (0.000-0.120)
[2018-01-31] MEDS: PANTOPRAZOLE (EC) 40 MG TAB PO (06:27)
[2018-01-31 07:48] LABS: ANION GAP 9 (5-13); BLOOD UREA NITROGEN 69 mg/dl (7-20); CALCIUM 8.7 mg/dl (8.4-10.2); CARBON DIOXIDE 22 mmol/L (21-31); CHLORIDE 114 mmol/L (97-110); CREATININE 3.06 mg/dl (0.44-1.00); GLUCOSE 113 mg/dl (70-220); POTASSIUM 3.8 mmol/L (3.5-5.1); SODIUM 145 mmol/L (135-144)
[2018-01-31 08:00] LABS: CHOL/HDL RATIO 2.3 RATIO; HDL CHOLESTEROL 52 mg/dl (33-92); LDL CHOLESTEROL,CALCULATED 57 mg/dl; TRIGLYCERIDES 59 mg/dl (0-149)
[2018-01-31 08:00] LABS: CHOLESTEROL 121 mg/dl (100-200)
[2018-01-31] MEDS: AMIODARONE 200 MG TAB PO ×2 (08:58→20:54)
[2018-01-31] MEDS: FUROSEMIDE 20 MG INJ IV ×2 (08:58→20:54)
[2018-01-31] MEDS: FERROUS SULFATE (EC) 325 MG TAB PO (08:58)
[2018-01-31] MEDS: ALLOPURINOL 100 MG TAB PO (08:58)
[2018-01-31] MEDS: DOCUSATE SODIUM 100 MG CAP PO ×2 (08:58→20:53)
[2018-01-31] MEDS: CLOPIDOGREL 75 MG TAB PO (08:59)
[2018-01-31] MEDS: METOPROLOL 25 MG TAB PO ×2 (08:59→20:53)
[2018-01-31] MEDS: ENOXAPARIN 30 MG/0.3 ML SYG SC (09:00)
[2018-01-31] MEDS: ASPIRIN (EC) 325 MG TAB PO (09:00)
[2018-01-31] MEDS: MUPIROCIN 2% 22 GM OINT TOP ×2 (13:41→20:55)
[2018-01-31] MEDS: TAMSULOSIN (SR) 0.4 MG CAP PO (20:53)
[2018-01-31] MEDS: GABAPENTIN 300 MG CAP PO (20:53)
[2018-01-31] MEDS: PRAMIPEXOLE 0.25 MG TAB PO (20:53)
[2018-01-31] MEDS: ATORVASTATIN 10 MG TAB PO (20:53)
[2018-02-01] MEDS: GUAIFENESIN/DM 5ML CUP PO (01:05)
[2018-02-01] MEDS: morphine 2 MG INJ IV (01:05)
[2018-02-01] MEDS: PANTOPRAZOLE (EC) 40 MG TAB PO (06:33)
[2018-02-01 07:01] LABS: ANION GAP 10 (5-13); BLOOD UREA NITROGEN 62 mg/dl (7-20); CALCIUM 8.7 mg/dl (8.4-10.2); CARBON DIOXIDE 23 mmol/L (21-31); CHLORIDE 112 mmol/L (97-110); CREATININE 3.25 mg/dl (0.44-1.00); GLUCOSE 105 mg/dl (70-220); POTASSIUM 3.4 mmol/L (3.5-5.1); SODIUM 145 mmol/L (135-144)
[2018-02-01] MEDS: FUROSEMIDE 20 MG INJ IV ×2 (08:45→20:56)
[2018-02-01] MEDS: CLOPIDOGREL 75 MG TAB PO (08:47)
[2018-02-01] MEDS: ASPIRIN (EC) 325 MG TAB PO (08:47)
[2018-02-01] MEDS: METOPROLOL 25 MG TAB PO ×2 (08:47→20:57)
[2018-02-01] MEDS: AMIODARONE 200 MG TAB PO ×2 (08:47→20:55)
[2018-02-01] MEDS: ENOXAPARIN 30 MG/0.3 ML SYG SC (08:47)
[2018-02-01] MEDS: FERROUS SULFATE (EC) 325 MG TAB PO (08:48)
[2018-02-01] MEDS: DOCUSATE SODIUM 100 MG CAP PO ×2 (08:48→20:54)
[2018-02-01] MEDS: ALLOPURINOL 100 MG TAB PO (08:48)
[2018-02-01] MEDS: MUPIROCIN 2% 22 GM OINT TOP ×2 (08:49→20:57)
[2018-02-01] MEDS: BISACODYL 10 MG SUPP PR (13:12)
[2018-02-01] MEDS: POTASSIUM CHLORIDE 20 MEQ POWDER FOR ORAL SOLN PO (18:44)
[2018-02-01] MEDS ORDERED: HEPARIN 5,000 UNIT/0.5 ML VIAL (20:50)
[2018-02-01] MEDS: GABAPENTIN 300 MG CAP PO (20:54)
[2018-02-01] MEDS: ATORVASTATIN 10 MG TAB PO (20:56)
[2018-02-01] MEDS: HEPARIN 5,000 UNIT/1 ML VIAL SC (21:01)
[2018-02-01] MEDS: TAMSULOSIN (SR) 0.4 MG CAP PO (21:02)
[2018-02-02] MEDS: PANTOPRAZOLE (EC) 40 MG TAB PO (06:07)
[2018-02-02 08:32] LABS: ANION GAP 11 (5-13); BLOOD UREA NITROGEN 59 mg/dl (7-20); CALCIUM 8.8 mg/dl (8.4-10.2); CARBON DIOXIDE 23 mmol/L (21-31); CHLORIDE 112 mmol/L (97-110); CREATININE 3.24 mg/dl (0.44-1.00); GLUCOSE 91 mg/dl (70-220); POTASSIUM 3.5 mmol/L (3.5-5.1); SODIUM 146 mmol/L (135-144)
[2018-02-02] MEDS ORDERED: HEPARIN 5,000 UNIT/0.5 ML VIAL ×2 (08:57→21:10)
[2018-02-02] MEDS: ASPIRIN (EC) 325 MG TAB PO ×2 (09:00→09:03)
[2018-02-02] MEDS: METOPROLOL 25 MG TAB PO (09:00)
[2018-02-02] MEDS: FERROUS SULFATE (EC) 325 MG TAB PO (09:02)
[2018-02-02] MEDS: ALLOPURINOL 100 MG TAB PO (09:02)
[2018-02-02] MEDS: DOCUSATE SODIUM 100 MG CAP PO ×2 (09:02→22:01)
[2018-02-02] MEDS: AMIODARONE 200 MG TAB PO (09:04)
[2018-02-02] MEDS: CLOPIDOGREL 75 MG TAB PO (09:05)
[2018-02-02] MEDS: FUROSEMIDE 20 MG INJ IV ×2 (09:06→22:00)
[2018-02-02] MEDS: MUPIROCIN 2% 22 GM OINT TOP ×2 (09:06→22:02)
[2018-02-02] MEDS: HEPARIN 5,000 UNIT/1 ML VIAL SC ×2 (09:15→23:40)
[2018-02-02] MEDS: ATORVASTATIN 10 MG TAB PO (22:01)
[2018-02-02] MEDS: TAMSULOSIN (SR) 0.4 MG CAP PO (22:01)
[2018-02-02] MEDS: GABAPENTIN 300 MG CAP PO (22:02)
[2018-02-03] MEDS: PANTOPRAZOLE (EC) 40 MG TAB PO (05:39)
[2018-02-03 06:42] LABS: ANION GAP 11 (5-13); BLOOD UREA NITROGEN 52 mg/dl (7-20); CALCIUM 8.5 mg/dl (8.4-10.2); CARBON DIOXIDE 25 mmol/L (21-31); CHLORIDE 110 mmol/L (97-110); CREATININE 3.27 mg/dl (0.44-1.00); GLUCOSE 100 mg/dl (70-220); POTASSIUM 3.3 mmol/L (3.5-5.1); SODIUM 146 mmol/L (135-144)
[2018-02-03] MEDS: ASPIRIN (EC) 325 MG TAB PO (09:00)
[2018-02-03] MEDS ORDERED: HEPARIN 5,000 UNIT/0.5 ML VIAL ×2 (09:23→20:04)
[2018-02-03] MEDS: POTASSIUM CHLORIDE (SR) 20 MEQ TAB PO (09:29)
[2018-02-03] MEDS: CLOPIDOGREL 75 MG TAB PO (09:30)
[2018-02-03] MEDS: AMIODARONE 200 MG TAB PO (09:31)
[2018-02-03] MEDS: FERROUS SULFATE (EC) 325 MG TAB PO (09:32)
[2018-02-03] MEDS: MUPIROCIN 2% 22 GM OINT TOP ×2 (09:33→20:21)
[2018-02-03] MEDS: ALLOPURINOL 100 MG TAB PO (09:33)
[2018-02-03] MEDS: FUROSEMIDE 20 MG INJ IV ×2 (09:34→20:13)
[2018-02-03] MEDS: DOCUSATE SODIUM 100 MG CAP PO ×2 (09:34→20:12)
[2018-02-03] MEDS: HEPARIN 5,000 UNIT/1 ML VIAL SC ×2 (10:08→20:35)
[2018-02-03] MEDS: BISACODYL 10 MG SUPP PR (14:00)
[2018-02-03] MEDS: TAMSULOSIN (SR) 0.4 MG CAP PO (20:12)
[2018-02-03] MEDS: GABAPENTIN 300 MG CAP PO (20:12)
[2018-02-03] MEDS: ATORVASTATIN 10 MG TAB PO (20:19)
[2018-02-03] MEDS: GUAIFENESIN/DM 5ML CUP PO (20:20)
[2018-02-04] MEDS: PANTOPRAZOLE (EC) 40 MG TAB PO (05:40)
[2018-02-04 06:05] LABS: ADD MAN DIFF? NO
[2018-02-04 06:11] LABS: WHITE BLOOD COUNT 6.8 10^3/ul (4.8-10.8)
[2018-02-04 06:11] LABS: BASOPHIL # 0.1 10^3/ul (0.0-0.1); BASOPHILS % 0.7 % (0.0-2.0); EOSINOPHILS # 0.7 10^3/ul (0.0-0.5); HEMATOCRIT 35.5 % (37.0-47.0); HEMOGLOBIN 11.3 g/dl (12.0-16.0); LYMPHOCYTES % 29.8 % (15.0-51.0); MEAN CORPUSCULAR HEMOGLOBIN 30.4 pg (29.0-33.0); MEAN CORPUSCULAR HGB CONC 31.8 g/dl (32.0-37.0); MEAN CORPUSCULAR VOLUME 95.4 fl (82.0-101.0); MEAN PLATELET VOLUME 10.2 fl (7.4-10.4); MONOCYTE # 0.6 10^3/ul (0.3-0.9); MONOCYTES % 9.2 % (0.0-11.0); NEUTROPHIL # 3.4 10^3/ul (1.6-7.5); NEUTROPHILS % 49.4 % (39.0-77.0); PLATELET COUNT 223 10^3/UL (140-415); RED BLOOD COUNT 3.72 10^6/ul (4.20-5.40); RED CELL DISTRIBUTION WIDTH 14.5 % (11.5-14.5)
[2018-02-04 07:08] LABS: ANION GAP 8 (5-13); BLOOD UREA NITROGEN 50 mg/dl (7-20); CALCIUM 9.1 mg/dl (8.4-10.2); CARBON DIOXIDE 25 mmol/L (21-31); CHLORIDE 113 mmol/L (97-110); CREATININE 3.18 mg/dl (0.44-1.00); GLUCOSE 103 mg/dl (70-220); SODIUM 146 mmol/L (135-144)
[2018-02-04] MEDS ORDERED: HEPARIN 5,000 UNIT/0.5 ML VIAL ×2 (08:08→21:28)
[2018-02-04] MEDS: FERROUS SULFATE (EC) 325 MG TAB PO (08:30)
[2018-02-04] MEDS: ALLOPURINOL 100 MG TAB PO (08:30)
[2018-02-04] MEDS: ASPIRIN (EC) 325 MG TAB PO ×2 (08:31→08:48)
[2018-02-04] MEDS: FUROSEMIDE 20 MG INJ IV ×2 (08:31→21:35)
[2018-02-04] MEDS: DOCUSATE SODIUM 100 MG CAP PO ×2 (08:31→21:34)
[2018-02-04] MEDS: AMIODARONE 200 MG TAB PO (08:31)
[2018-02-04] MEDS: CLOPIDOGREL 75 MG TAB PO ×2 (08:31→08:48)
[2018-02-04] MEDS: MUPIROCIN 2% 22 GM OINT TOP ×2 (08:32→21:35)
[2018-02-04] MEDS: HEPARIN 5,000 UNIT/1 ML VIAL SC ×2 (08:47→21:59)
[2018-02-04] MEDS: ATORVASTATIN 10 MG TAB PO (21:34)
[2018-02-04] MEDS: TAMSULOSIN (SR) 0.4 MG CAP PO (21:34)
[2018-02-04] MEDS: GABAPENTIN 300 MG CAP PO (21:34)
[2018-02-05] MEDS: PANTOPRAZOLE (EC) 40 MG TAB PO (05:37)
[2018-02-05] MEDS ORDERED: HEPARIN 5,000 UNIT/0.5 ML VIAL ×2 (08:19→20:38)
[2018-02-05] MEDS: FUROSEMIDE 20 MG INJ IV ×2 (08:23→20:47)
[2018-02-05] MEDS: ASPIRIN (EC) 325 MG TAB PO (08:23)
[2018-02-05] MEDS: ALLOPURINOL 100 MG TAB PO (08:23)
[2018-02-05] MEDS: CLOPIDOGREL 75 MG TAB PO (08:23)
[2018-02-05] MEDS: DOCUSATE SODIUM 100 MG CAP PO ×2 (08:23→20:47)
[2018-02-05] MEDS: FERROUS SULFATE (EC) 325 MG TAB PO (08:23)
[2018-02-05] MEDS: MUPIROCIN 2% 22 GM OINT TOP ×2 (08:24→20:47)
[2018-02-05] MEDS: AMIODARONE 200 MG TAB PO (08:24)
[2018-02-05] MEDS: HEPARIN 5,000 UNIT/1 ML VIAL SC ×2 (08:33→20:59)
[2018-02-05] MEDS: BISACODYL 10 MG SUPP PR (13:07)
[2018-02-05] MEDS: GABAPENTIN 300 MG CAP PO (20:47)
[2018-02-05] MEDS: ATORVASTATIN 10 MG TAB PO (20:47)
[2018-02-05] MEDS: TAMSULOSIN (SR) 0.4 MG CAP PO (20:47)
[2018-02-06 06:11] LABS: ADD MAN DIFF? NO
[2018-02-06 06:14] LABS: BASOPHIL # 0.1 10^3/ul (0.0-0.1); BASOPHILS % 0.6 % (0.0-2.0); EOSINOPHILS # 0.7 10^3/ul (0.0-0.5); HEMATOCRIT 34.9 % (37.0-47.0); HEMOGLOBIN 10.9 g/dl (12.0-16.0); LYMPHOCYTES % 25.4 % (15.0-51.0); MEAN CORPUSCULAR HEMOGLOBIN 29.9 pg (29.0-33.0); MEAN CORPUSCULAR HGB CONC 31.2 g/dl (32.0-37.0); MEAN CORPUSCULAR VOLUME 95.9 fl (82.0-101.0); MEAN PLATELET VOLUME 9.6 fl (7.4-10.4); MONOCYTE # 0.7 10^3/ul (0.3-0.9); MONOCYTES % 8.6 % (0.0-11.0); NEUTROPHIL # 4.5 10^3/ul (1.6-7.5); NEUTROPHILS % 55.8 % (39.0-77.0); PLATELET COUNT 243 10^3/UL (140-415); RED BLOOD COUNT 3.64 10^6/ul (4.20-5.40); RED CELL DISTRIBUTION WIDTH 14.2 % (11.5-14.5)
[2018-02-06] MEDS: PANTOPRAZOLE (EC) 40 MG TAB PO (06:19)
[2018-02-06 06:38] LABS: ANION GAP 8 (5-13); BLOOD UREA NITROGEN 48 mg/dl (7-20); CARBON DIOXIDE 24 mmol/L (21-31); CHLORIDE 110 mmol/L (97-110); CREATININE 3.09 mg/dl (0.44-1.00); GLUCOSE 97 mg/dl (70-220); POTASSIUM 3.6 mmol/L (3.5-5.1); SODIUM 142 mmol/L (135-144)
[2018-02-06] MEDS: CLOPIDOGREL 75 MG TAB PO (08:39)
[2018-02-06] MEDS: DOCUSATE SODIUM 100 MG CAP PO (08:39)
[2018-02-06] MEDS: ALLOPURINOL 100 MG TAB PO (08:39)
[2018-02-06] MEDS: FERROUS SULFATE (EC) 325 MG TAB PO (08:40)
[2018-02-06] MEDS: FUROSEMIDE 20 MG INJ IV (08:42)
[2018-02-06] MEDS: ASPIRIN (EC) 325 MG TAB PO (08:42)
[2018-02-06] MEDS: AMIODARONE 200 MG TAB PO (08:42)
[2018-02-06] MEDS: MUPIROCIN 2% 22 GM OINT TOP (08:43)
[2018-02-06] MEDS ORDERED: HEPARIN 5,000 UNIT/0.5 ML VIAL (12:35)
[2018-02-06] MEDS: HEPARIN 5,000 UNIT/1 ML VIAL SC (12:42)
[2018-02-06] MEDS: FUROSEMIDE 40 MG TAB PO (18:46)
== END 2018-02-06 19:00 | DRG 291 ==
LOC: TEL 01-31 13:29 → E/R 23:16 → TEL 01-29 00:36
DX: I13.0 Hypertensive heart and chronic kidney disease with heart failure and stage 1 through stage 4 chronic kidney disease, or unspecified chronic kidney disease (principal); I50.43 Acute on chronic combined systolic (congestive) and diastolic (congestive) heart failure; N17.9 Acute kidney failure, unspecified; G93.40 Encephalopathy, unspecified; N18.3 Chronic kidney disease, stage 3 (moderate); J44.9 Chronic obstructive pulmonary disease, unspecified; F32.9 Major depressive disorder, single episode, unspecified; M10.9 Gout, unspecified; D63.1 Anemia in chronic kidney disease; I25.2 Old myocardial infarction; E87.5 Hyperkalemia; F03.90 Unspecified dementia, unspecified severity, without behavioral disturbance, psychotic disturbance, mood disturbance, and anxiety; E03.9 Hypothyroidism, unspecified; E78.5 Hyperlipidemia, unspecified; S43.004A Unspecified dislocation of right shoulder joint, initial encounter; M75.102 Unspecified rotator cuff tear or rupture of left shoulder, not specified as traumatic; M75.101 Unspecified rotator cuff tear or rupture of right shoulder, not specified as traumatic; M19.012 Primary osteoarthritis, left shoulder; M19.011 Primary osteoarthritis, right shoulder; I35.0 Nonrheumatic aortic (valve) stenosis; Z22.322 Carrier or suspected carrier of Methicillin resistant Staphylococcus aureus
CPT/HCPCS: 36415; 71045; 76775; 80048; 80053; 80061; 82550; 82553; 82803; 82962; 83605; 83880; 84484; 85025; 87040; 87081; 90686; 93005; 93306; 94640; 94664; 99285-25

== ENCOUNTER 2018-03-26 21:09 | Emergency (ER) | payer MEDICARE, OTHER ==
[2018-03-26 21:53] LABS: ADD MAN DIFF? NO
[2018-03-26 21:57] LABS: BASOPHILS % 0.1 % (0.0-2.0); EOSINOPHILS # 0.1 10^3/ul (0.0-0.5); EOSINOPHILS % 1.5 % (0.0-7.0); HEMATOCRIT 25.9 % (37.0-47.0); HEMOGLOBIN 8.2 g/dl (12.0-16.0); LYMPHOCYTES # 0.7 10^3/ul (0.8-2.9); MEAN CORPUSCULAR HGB CONC 31.7 g/dl (32.0-37.0); MEAN CORPUSCULAR VOLUME 94.9 fl (82.0-101.0); MEAN PLATELET VOLUME 10.6 fl (7.4-10.4); MONOCYTE # 0.3 10^3/ul (0.3-0.9); MONOCYTES % 3.4 % (0.0-11.0); NEUTROPHIL # 6.3 10^3/ul (1.6-7.5); NEUTROPHILS % 85.7 % (39.0-77.0); PLATELET COUNT 177 10^3/UL (140-415); RED BLOOD COUNT 2.73 10^6/ul (4.20-5.40); RED CELL DISTRIBUTION WIDTH 16.3 % (11.5-14.5)
[2018-03-26 21:57] LABS: WHITE BLOOD COUNT 7.3 10^3/ul (4.8-10.8)
[2018-03-26 22:16] LABS: ANION GAP 13 (5-13); BLOOD UREA NITROGEN 76 mg/dl (7-20); CARBON DIOXIDE 19 mmol/L (21-31); CHLORIDE 101 mmol/L (97-110); CREATININE 4.79 mg/dl (0.44-1.00); GLUCOSE 174 mg/dl (70-220); INR 0.86; POTASSIUM 4.2 mmol/L (3.5-5.1); PROTIME 11.8 Sec (11.9-14.9); PT RATIO 0.9; SODIUM 133 mmol/L (135-144)
[2018-03-26 22:28] LABS: B-TYPE NATRIURETIC PEPTIDE 562 PG/ML (0-450); TROPONIN-I 0.014 ng/ml (0.000-0.120)
[2018-03-27] MEDS: METHYLPREDNISOLONE 125 MG INJ IV (00:18)
[2018-03-27] MEDS: KETOROLAC 15 MG INJ IV (00:19)
[2018-03-27] MEDS: ALBUTEROL 0.5% (NEB) 2.5 MG/0.5 ML AMP INH (00:35)
[2018-03-27] MEDS: IPRATROPIUM (NEB) 0.5 MG/2.5 ML AMP INH (00:35)
== END 2018-03-27 04:15 | disposition home or self-care (01) ==
LOC: E/R 03-27 04:15
DX: J44.9 Chronic obstructive pulmonary disease, unspecified (principal); D64.9 Anemia, unspecified; N18.9 Chronic kidney disease, unspecified; I50.9 Heart failure, unspecified; R79.89 Other specified abnormal findings of blood chemistry; J06.9 Acute upper respiratory infection, unspecified; I11.0 Hypertensive heart disease with heart failure; I12.9 Hypertensive chronic kidney disease with stage 1 through stage 4 chronic kidney disease, or unspecified chronic kidney disease; Z79.82 Long term (current) use of aspirin
CPT/HCPCS: 36415; 71045; 80048; 83880; 84484; 85025; 85610; 93005; 94644; 96374; 96375; 99285-25

== ENCOUNTER 2018-03-29 17:08 | Inpatient (IN) | payer MEDICARE, OTHER ==
[2018-03-29] MEDS ORDERED: ACETAMINOPHEN 325 MG TAB PO (17:30)
[2018-03-29 17:39] LABS: ADD MAN DIFF? NO
[2018-03-29] MEDS: NA BICARBONATE 8.4% 50 ML SYG IV (17:43)
[2018-03-29 17:45] LABS: ABNORMAL IP MESSAGE 1; BASOPHILS % 0.1 % (0.0-2.0); HEMATOCRIT 24.2 % (37.0-47.0); HEMOGLOBIN 7.9 g/dl (12.0-16.0); LYMPHOCYTES # 0.5 10^3/ul (0.8-2.9); LYMPHOCYTES % 4.7 % (15.0-51.0); MEAN CORPUSCULAR HEMOGLOBIN 30.5 pg (29.0-33.0); MEAN CORPUSCULAR HGB CONC 32.6 g/dl (32.0-37.0); MEAN CORPUSCULAR VOLUME 93.4 fl (82.0-101.0); MEAN PLATELET VOLUME 10.6 fl (7.4-10.4); MONOCYTE # 0.3 10^3/ul (0.3-0.9); MONOCYTES % 2.3 % (0.0-11.0); NEUTROPHIL # 10.5 10^3/ul (1.6-7.5); NEUTROPHILS % 92.4 % (39.0-77.0); NUCLEATED RED BLOOD CELLS% 0.2 /100WBC (0.0-0.0); PLATELET COUNT 160 10^3/UL (140-415); RED BLOOD COUNT 2.59 10^6/ul (4.20-5.40); RED CELL DISTRIBUTION WIDTH 16.4 % (11.5-14.5)
[2018-03-29 17:45] LABS: WHITE BLOOD COUNT 11.4 10^3/ul (4.8-10.8)
[2018-03-29] MEDS: FUROSEMIDE 20 MG INJ IV (17:47)
[2018-03-29 17:58] LABS: POSITIVE DIFF @See below
[2018-03-29 18:04] LABS: PROTIME 12.3 Sec (11.9-14.9)
[2018-03-29] MEDS: CEFTRIAXONE 1 GM/50 ML (PMX) 50 ML IVPB (18:04)
[2018-03-29 18:05] LABS: PARTIAL THROMBOPLASTIN TIME 37.2 Sec (23.0-35.0)
[2018-03-29 18:10] LABS: ANION GAP 11 (5-13); BLOOD UREA NITROGEN 107 mg/dl (7-20); CALCIUM 8.5 mg/dl (8.4-10.2); CARBON DIOXIDE 19 mmol/L (21-31); CHLORIDE 99 mmol/L (97-110); CREATININE 5.55 mg/dl (0.44-1.00); GLUCOSE 110 mg/dl (70-220); POTASSIUM 5.9 mmol/L (3.5-5.1); SODIUM 129 mmol/L (135-144)
[2018-03-29 18:21] LABS: TROPONIN-I 0.016 ng/ml (0.000-0.120)
[2018-03-29] MEDS ORDERED: SOD CHLORIDE 0.9% 1,000 ML IV (18:25)
[2018-03-29] MEDS: ALBUTEROL 0.5% (NEB) 2.5 MG/0.5 ML AMP INH (18:57)
[2018-03-29] MEDS: CA CHLORIDE 10% 10 ML SYRINGE IV (19:12)
[2018-03-29] MEDS: SODIUM CHLORIDE 0.9% 1L BAG IV* (19:12)
[2018-03-29] MEDS: ONDANSETRON 4 MG INJ IV ×2 (19:20→22:44)
[2018-03-29] MEDS: ATROPINE 1 MG INJ IV (19:37)
[2018-03-29] MEDS: DOPamine-D5W 1.6 MG/ML 250 ML IV (19:43)
[2018-03-29] MEDS: ATROPINE 0.4 MG INJ IV (19:50)
[2018-03-29 20:30] LABS: IMMEDIATE SPIN CROSSMATCH 1 2
[2018-03-29] MEDS: SOD CHLORIDE 0.9% 0 ML IV (20:40)
[2018-03-29 22:11] LABS: LACTIC ACID 2.4 mmol/L (0.5-2.0)
[2018-03-29] MEDS ORDERED: ACETAMINOPHEN 500 MG TAB PO (22:30)
[2018-03-29] MEDS: METHYLPREDNISOLONE 40 MG INJ IV (22:44)
[2018-03-30] MEDS: DOPamine-D5W 1.6 MG/ML 250 ML IV ×2 (02:51→08:07)
[2018-03-30 04:56] LABS: ADD MAN DIFF? NO
[2018-03-30 05:08] LABS: ABNORMAL IP MESSAGE 1; BASOPHILS % 0.1 % (0.0-2.0); HEMATOCRIT 33.1 % (37.0-47.0); LYMPHOCYTES # 0.2 10^3/ul (0.8-2.9); LYMPHOCYTES % 2.3 % (15.0-51.0); MEAN CORPUSCULAR HEMOGLOBIN 30.9 pg (29.0-33.0); MEAN CORPUSCULAR HGB CONC 32.6 g/dl (32.0-37.0); MEAN CORPUSCULAR VOLUME 94.8 fl (82.0-101.0); MEAN PLATELET VOLUME 11.6 fl (7.4-10.4); MONOCYTE # 0.7 10^3/ul (0.3-0.9); MONOCYTES % 6.4 % (0.0-11.0); NEUTROPHIL # 9.2 10^3/ul (1.6-7.5); NUCLEATED RED BLOOD CELLS% 0.3 /100WBC (0.0-0.0); PLATELET COUNT 188 10^3/UL (140-415); RED CELL DISTRIBUTION WIDTH 15.9 % (11.5-14.5)
[2018-03-30 05:08] LABS: WHITE BLOOD COUNT 10.2 10^3/ul (4.8-10.8)
[2018-03-30 05:34] LABS: ALANINE AMINOTRANSFERASE 35 IU/L (13-69); ALBUMIN 3.8 g/dl (3.3-4.9); ALBUMIN/GLOBULIN RATIO 1.35; ALKALINE PHOSPHATASE 86 IU/L (42-121); ANION GAP 16 (5-13); ASPARTATE AMINO TRANSFERASE 63 IU/L (15-46); BLOOD UREA NITROGEN 98 mg/dl (7-20); CALCIUM 8.6 mg/dl (8.4-10.2); CARBON DIOXIDE 17 mmol/L (21-31); CHLORIDE 101 mmol/L (97-110); CREATININE 5.55 mg/dl (0.44-1.00); GLUCOSE 128 mg/dl (70-220); POTASSIUM 5.7 mmol/L (3.5-5.1); SODIUM 134 mmol/L (135-144); TOTAL PROTEIN 6.6 g/dl (6.1-8.1)
[2018-03-30 05:41] LABS: B-TYPE NATRIURETIC PEPTIDE 6860 PG/ML (0-450)
[2018-03-30 05:44] LABS: POSITIVE DIFF @See below
[2018-03-30 05:46] LABS: HEMOGLOBIN 10.8 g/dl (12.0-16.0); RED BLOOD COUNT 3.49 10^6/ul (4.20-5.40)
[2018-03-30 08:34] LABS: AADO2 Arterial 87.2 mmHg (7.0-24.0); Allen Test ACCEPTAB; Arterial Base Excess -12.2 mmol/L (-3.0-3); Arterial Blood Gas Oxygen Sat 97.3 mmHG (95.0-100.0); Arterial COHb 0.5 % (0.0-3.0); Arterial Fraction of Oxyhgb 96.8 % (93.0-99.0); Arterial HCO3 17.1 mmol/L (22.0-26.0); Arterial MetHb 0 % (0.0-1.5); MODE NASAL CANNULA; Site Right Radial
[2018-03-30 08:48] LABS: HAAIG REFLEX REFLEX FILED
[2018-03-30] MEDS: ALBUTEROL/IPRATROPIUM (NEB) 3 ML AMP HHN ×3 (08:48→19:47)
[2018-03-30] MEDS: ALBUMIN HUMAN 25% 100 ML IV (08:58)
[2018-03-30] MEDS: METHYLPREDNISOLONE 40 MG INJ IV ×2 (09:04→21:08)
[2018-03-30 09:16] LABS: URIC ACID 4.2 mg/dl (3.1-7.9)
[2018-03-30] MEDS: SODIUM BICARBONATE (IV ADD) 100 MEQ in DEXTROSE 5% 900 ML IV ×2 (09:30→22:01)
[2018-03-30 09:49] LABS: HEPATITIS B SURFACE ANTIGEN NEGATIVE (NEGATIVE)
[2018-03-30 10:06] LABS: HEPATITIS B CORE ANTIBODY NEGATIVE (NEGATIVE); HEPATITIS C VIRAL ANTIBODY NEGATIVE (NEGATIVE); HIV 1&2 ANTIBODY NEGATIVE (NEGATIVE)
[2018-03-30] MEDS: FUROSEMIDE 40 MG INJ IV (10:32)
[2018-03-30 10:37] LABS: ADD UMIC YES; UR ASCORBIC ACID NEGATIVE (NEGATIVE); UR BACTERIA MANY /HPF (NONE SEEN); UR BILIRUBIN (Dip) NEGATIVE (NEGATIVE); UR BLOOD (Dip) 3+ mg/dL (NEGATIVE); UR CLARITY TURBID (CLEAR); UR COLOR RED (YELLOW); UR GLUCOSE (Dip) NEGATIVE (NEGATIVE); UR KETONES (Dip) NEGATIVE (NEGATIVE); UR LEUKOCYTE ESTERASE (Dip) 2+ Leu/ul (NEGATIVE); UR NITRITE (Dip) NEGATIVE (NEGATIVE); UR RBC > 182 /HPF (0-5); UR SPECIFIC GRAVITY (Dip) 1.017 (1.003-1.030); UR SQUAMOUS EPITHELIAL CELL FEW /HPF (FEW); UR TOTAL PROTEIN (Dip) 3+ mg/dl (NEGATIVE); UR UROBILINOGEN (Dip) NEGATIVE (NEGATIVE); UR WBC > 182 /HPF (0-5)
[2018-03-30] MEDS ORDERED: HEPARIN 1000 UNITS/ML 10 ML INJ (10:52)
[2018-03-30] MEDS: LIDOCAINE 1% (MPF) 5 ML VIAL SC (12:45)
[2018-03-30] MEDS ORDERED: SODIUM CHLORIDE 0.9% 1L BAG IV (14:00)
[2018-03-30] MEDS ORDERED: MANNITOL 25% 50 ML IV (14:00)
[2018-03-30] MEDS ORDERED: HEPARIN 1000 UNITS/ML 10 ML INJ CATHETER (14:00)
[2018-03-30 14:36] LABS: SODIUM,URINE RANDOM 37 mmol/L (30-90)
[2018-03-30 14:39] LABS: CREATININE,URINE RANDOM 88.24 mg/dl (20-320)
[2018-03-30 14:47] LABS: PROTEIN/CREAT RATIO 4.75 RATIO
[2018-03-30 14:48] LABS: AADO2 Arterial 202.4 mmHg (7.0-24.0); Allen Test ACCEPTAB; Arterial Base Excess -11.1 mmol/L (-3.0-3); Arterial Blood Gas Oxygen Sat 94.7 mmHG (95.0-100.0); Arterial COHb 0.3 % (0.0-3.0); Arterial Fraction of Oxyhgb 94.4 % (93.0-99.0); Arterial HCO3 19.1 mmol/L (22.0-26.0); Arterial MetHb 0 % (0.0-1.5); Arterial pCO2 64.2 mmhg (35-45); Blood Gas IEPAP 16/6; Blood Gas PS 10; MODE MASK - BIPAP; Site Right Radial
[2018-03-30 15:47] LABS: ANION GAP 18 (5-13); BLOOD UREA NITROGEN 99 mg/dl (7-20); CALCIUM 8.2 mg/dl (8.4-10.2); CARBON DIOXIDE 17 mmol/L (21-31); CHLORIDE 97 mmol/L (97-110); CREATININE 5.85 mg/dl (0.44-1.00); GLUCOSE 150 mg/dl (70-220); SODIUM 132 mmol/L (135-144)
[2018-03-30 15:52] LABS: POTASSIUM 6.2 mmol/L (3.5-5.1)
[2018-03-30] MEDS ORDERED: MANNITOL 20% 62.5 ML IV (18:30)
[2018-03-30 20:13] LABS: AADO2 Arterial 162.9 mmHg (7.0-24.0); Allen Test ACCEPTAB; Arterial Base Excess -1.1 mmol/L (-3.0-3); Arterial Blood Gas Oxygen Sat 97.2 mmHG (95.0-100.0); Arterial COHb 0.6 % (0.0-3.0); Arterial Fraction of Oxyhgb 96.5 % (93.0-99.0); Arterial HCO3 29.1 mmol/L (22.0-26.0); Arterial MetHb 0.1 % (0.0-1.5); Blood Gas IEPAP 20/8; MODE MASK - BIPAP; Site Right Radial
[2018-03-30] MEDS: CEFTRIAXONE 1 GM/50 ML (PMX) 50 ML IVPB (21:04)
[2018-03-30] MEDS: HEPARIN 5,000 UNIT/1 ML VIAL SC (21:09)
[2018-03-30] MEDS ORDERED: VANCOMYCIN IV PER PHARMACY XX (23:30)
[2018-03-31] MEDS: DOPamine-D5W 1.6 MG/ML 250 ML IV (01:16)
[2018-03-31] MEDS: VANCOMYCIN 1.5 GM in SOD CHLORIDE 0.9% 250 ML IVPB (01:53)
[2018-03-31 05:01] LABS: ABNORMAL IP MESSAGE 1; HEMOGLOBIN 9.7 g/dl (12.0-16.0); MEAN CORPUSCULAR HEMOGLOBIN 30.5 pg (29.0-33.0); MEAN CORPUSCULAR HGB CONC 33.4 g/dl (32.0-37.0); MEAN CORPUSCULAR VOLUME 91.2 fl (82.0-101.0); MEAN PLATELET VOLUME 10.6 fl (7.4-10.4); NUCLEATED RED BLOOD CELLS% 0.6 /100WBC (0.0-0.0); PLATELET COUNT 152 10^3/UL (140-415); RED BLOOD COUNT 3.18 10^6/ul (4.20-5.40)
[2018-03-31 05:01] LABS: WHITE BLOOD COUNT 10.6 10^3/ul (4.8-10.8)
[2018-03-31 05:18] LABS: ADD MAN DIFF? YES; POSITIVE DIFF @See below
[2018-03-31 05:30] LABS: ANION GAP 11 (5-13); BLOOD UREA NITROGEN 53 mg/dl (7-20); CALCIUM 7.7 mg/dl (8.4-10.2); CARBON DIOXIDE 28 mmol/L (21-31); CHLORIDE 95 mmol/L (97-110); CREATININE 3.66 mg/dl (0.44-1.00); GLUCOSE 111 mg/dl (70-220); POTASSIUM 4.7 mmol/L (3.5-5.1); SODIUM 134 mmol/L (135-144)
[2018-03-31 07:39] LABS: ANISOCYTOSIS 1+ (0-0); BAND NEUTROPHILS #M 1.8 10^3/ul (0.0-0.6); BAND NEUTROPHILS % (M) 17 % (0-4); BURR CELLS 1+ (0-0); ERYTHROBLAST% (NRBC) (M) 3 % (0-0); GIANT THROMBO% (M) 1 % (0-0); MONOCYTE #M 0.2 10^3/ul (0.3-0.9); MONOCYTES % (M) 2 % (0-11); OVALOCYTES 1+ (0-0); PLATELET ESTIMATE NORMAL; POIKILOCYTOSIS 2+ (0-0); SEG NEUT #M 8.8 10^3/ul (1.6-7.5); SEGMENTED NEUTROPHILS (M) % 81 % (39-77); SMUDGE%M 6 % (0-0)
[2018-03-31] MEDS: ALBUTEROL/IPRATROPIUM (NEB) 3 ML AMP HHN ×3 (08:19→19:19)
[2018-03-31] MEDS: SODIUM BICARBONATE (IV ADD) 100 MEQ in DEXTROSE 5% 900 ML IV ×2 (09:15→21:27)
[2018-03-31] MEDS: HEPARIN 1000 UNITS/ML 10 ML INJ CATHETER (10:23)
[2018-03-31] MEDS: METHYLPREDNISOLONE 40 MG INJ IV ×2 (10:50→21:22)
[2018-03-31] MEDS: HEPARIN 5,000 UNIT/1 ML VIAL SC ×2 (10:54→21:23)
[2018-03-31 11:03] LABS: AADO2 Arterial 66.2 mmHg (7.0-24.0); Allen Test ACCEPTAB; Arterial Blood Gas Oxygen Sat 97.8 mmHG (95.0-100.0); Arterial COHb 0.4 % (0.0-3.0); Arterial Fraction of Oxyhgb 97.4 % (93.0-99.0); Arterial HCO3 30.4 mmol/L (22.0-26.0); Arterial MetHb 0 % (0.0-1.5); MODE NASAL CANNULA; Site Right Radial
[2018-03-31] MEDS: CEFTRIAXONE 1 GM/50 ML (PMX) 50 ML IVPB (18:29)
[2018-04-01 05:27] LABS: ADD MAN DIFF? NO
[2018-04-01 05:41] LABS: ABNORMAL IP MESSAGE 1; BASOPHILS % 0.1 % (0.0-2.0); HEMATOCRIT 27.3 % (37.0-47.0); HEMOGLOBIN 9.4 g/dl (12.0-16.0); LYMPHOCYTES # 0.3 10^3/ul (0.8-2.9); LYMPHOCYTES % 3.7 % (15.0-51.0); MEAN CORPUSCULAR HEMOGLOBIN 31.4 pg (29.0-33.0); MEAN CORPUSCULAR HGB CONC 34.4 g/dl (32.0-37.0); MEAN CORPUSCULAR VOLUME 91.3 fl (82.0-101.0); MEAN PLATELET VOLUME 10.9 fl (7.4-10.4); MONOCYTE # 0.3 10^3/ul (0.3-0.9); MONOCYTES % 2.8 % (0.0-11.0); NEUTROPHIL # 8.6 10^3/ul (1.6-7.5); NEUTROPHILS % 92.3 % (39.0-77.0); NUCLEATED RED BLOOD CELLS # 0.1 10^3/ul (0.0-0.0); NUCLEATED RED BLOOD CELLS% 0.9 /100WBC (0.0-0.0); PLATELET COUNT 145 10^3/UL (140-415); POSITIVE DIFF @See below; RED BLOOD COUNT 2.99 10^6/ul (4.20-5.40); RED CELL DISTRIBUTION WIDTH 15.9 % (11.5-14.5)
[2018-04-01 05:41] LABS: WHITE BLOOD COUNT 9.3 10^3/ul (4.8-10.8)
[2018-04-01 05:46] LABS: ANION GAP 7 (5-13); BLOOD UREA NITROGEN 31 mg/dl (7-20); CALCIUM 7.8 mg/dl (8.4-10.2); CARBON DIOXIDE 36 mmol/L (21-31); CHLORIDE 92 mmol/L (97-110); CREATININE 2.88 mg/dl (0.44-1.00); GLUCOSE 142 mg/dl (70-220); POTASSIUM 3.7 mmol/L (3.5-5.1); SODIUM 135 mmol/L (135-144)
[2018-04-01 06:02] LABS: FREE T4 (FREE THYROXINE) 0.16 ng/dl (0.85-1.93)
[2018-04-01] MEDS: LEVOTHYROXINE 100 MCG VIAL IV (06:29)
[2018-04-01] MEDS: SODIUM BICARBONATE (IV ADD) 100 MEQ in DEXTROSE 5% 900 ML IV ×3 (08:08→22:41)
[2018-04-01] MEDS: METHYLPREDNISOLONE 40 MG INJ IV ×2 (08:18→21:16)
[2018-04-01] MEDS: AMLODIPINE 5 MG TAB PO (08:21)
[2018-04-01] MEDS: HEPARIN 5,000 UNIT/1 ML VIAL SC ×2 (08:26→21:20)
[2018-04-01] MEDS: ALBUTEROL/IPRATROPIUM (NEB) 3 ML AMP HHN ×3 (08:56→19:56)
[2018-04-01] MEDS: ALTEPLASE (CATHFLO) 2 MG INJ CATHETER (15:13)
[2018-04-01] MEDS: CEFTRIAXONE 1 GM/50 ML (PMX) 50 ML IVPB (18:24)
[2018-04-01] MEDS: hydrALAzine 20 MG INJ IV (21:31)
[2018-04-02] MEDS: FUROSEMIDE 40 MG INJ IV (01:13)
[2018-04-02 05:32] LABS: ADD MAN DIFF? NO
[2018-04-02 05:37] LABS: ABNORMAL IP MESSAGE 1; BASOPHILS % 0.3 % (0.0-2.0); HEMATOCRIT 31.1 % (37.0-47.0); HEMOGLOBIN 10.2 g/dl (12.0-16.0); LYMPHOCYTES # 0.5 10^3/ul (0.8-2.9); LYMPHOCYTES % 3.5 % (15.0-51.0); MEAN CORPUSCULAR HEMOGLOBIN 30.4 pg (29.0-33.0); MEAN CORPUSCULAR HGB CONC 32.8 g/dl (32.0-37.0); MEAN CORPUSCULAR VOLUME 92.8 fl (82.0-101.0); MEAN PLATELET VOLUME 10.8 fl (7.4-10.4); MONOCYTE # 0.5 10^3/ul (0.3-0.9); MONOCYTES % 3.8 % (0.0-11.0); NEUTROPHIL # 11.9 10^3/ul (1.6-7.5); NEUTROPHILS % 91.2 % (39.0-77.0); NUCLEATED RED BLOOD CELLS # 0.1 10^3/ul (0.0-0.0); NUCLEATED RED BLOOD CELLS% 0.4 /100WBC (0.0-0.0); PLATELET COUNT 176 10^3/UL (140-415); RED BLOOD COUNT 3.35 10^6/ul (4.20-5.40); RED CELL DISTRIBUTION WIDTH 15.8 % (11.5-14.5)
[2018-04-02 05:52] LABS: POSITIVE DIFF @See below
[2018-04-02 06:02] LABS: LACTIC ACID 1.8 mmol/L (0.5-2.0); VANCOMYCIN,RANDOM 9.8 ug/ml
[2018-04-02 06:18] LABS: ANION GAP 10 (5-13); BLOOD UREA NITROGEN 27 mg/dl (7-20); CALCIUM 8.7 mg/dl (8.4-10.2); CARBON DIOXIDE 30 mmol/L (21-31); CHLORIDE 98 mmol/L (97-110); CREATININE 2.37 mg/dl (0.44-1.00); GLUCOSE 163 mg/dl (70-220); POTASSIUM 3.6 mmol/L (3.5-5.1); SODIUM 138 mmol/L (135-144)
[2018-04-02] MEDS: LEVOTHYROXINE 100 MCG VIAL IV (07:04)
[2018-04-02] MEDS: ALBUTEROL/IPRATROPIUM (NEB) 3 ML AMP HHN ×3 (07:46→20:32)
[2018-04-02] MEDS: AMLODIPINE 5 MG TAB PO (08:35)
[2018-04-02] MEDS: METHYLPREDNISOLONE 40 MG INJ IV ×2 (08:35→21:13)
[2018-04-02] MEDS: HEPARIN 5,000 UNIT/1 ML VIAL SC ×2 (08:46→21:57)
[2018-04-02] MEDS: VANCOMYCIN 1 GM 250 ML IVPB (11:36)
[2018-04-02] MEDS: SODIUM BICARBONATE (IV ADD) 100 MEQ in DEXTROSE 5% 900 ML IV (11:36)
[2018-04-02] MEDS: ACETAMINOPHEN 500 MG TAB PO (12:32)
[2018-04-02] MEDS: hydrALAzine 20 MG INJ IV (12:33)
[2018-04-02] MEDS: NIFEdipine (XL) 60 MG TAB PO ×2 (14:27→23:46)
[2018-04-02] MEDS: CEFTRIAXONE 1 GM/50 ML (PMX) 50 ML IVPB (17:39)
[2018-04-03 05:33] LABS: ADD MAN DIFF? NO
[2018-04-03 05:43] LABS: WHITE BLOOD COUNT 13.6 10^3/ul (4.8-10.8)
[2018-04-03 05:43] LABS: BASOPHILS % 0.1 % (0.0-2.0); HEMATOCRIT 29.4 % (37.0-47.0); HEMOGLOBIN 9.6 g/dl (12.0-16.0); LYMPHOCYTES # 0.7 10^3/ul (0.8-2.9); LYMPHOCYTES % 5.5 % (15.0-51.0); MEAN CORPUSCULAR HEMOGLOBIN 30.7 pg (29.0-33.0); MEAN CORPUSCULAR HGB CONC 32.7 g/dl (32.0-37.0); MEAN CORPUSCULAR VOLUME 93.9 fl (82.0-101.0); MEAN PLATELET VOLUME 10.2 fl (7.4-10.4); MONOCYTE # 0.7 10^3/ul (0.3-0.9); MONOCYTES % 4.9 % (0.0-11.0); NEUTROPHILS % 88.5 % (39.0-77.0); NUCLEATED RED BLOOD CELLS% 0.3 /100WBC (0.0-0.0); PLATELET COUNT 133 10^3/UL (140-415); RED BLOOD COUNT 3.13 10^6/ul (4.20-5.40)
[2018-04-03 06:06] LABS: ANION GAP 10 (5-13); BLOOD UREA NITROGEN 46 mg/dl (7-20); CALCIUM 8.7 mg/dl (8.4-10.2); CARBON DIOXIDE 35 mmol/L (21-31); CHLORIDE 94 mmol/L (97-110); CREATININE 3.41 mg/dl (0.44-1.00); GLUCOSE 146 mg/dl (70-220); POTASSIUM 3.2 mmol/L (3.5-5.1); SODIUM 139 mmol/L (135-144)
[2018-04-03] MEDS: LEVOTHYROXINE 100 MCG VIAL IV (06:10)
[2018-04-03] MEDS: ALBUTEROL/IPRATROPIUM (NEB) 3 ML AMP HHN ×3 (08:48→20:14)
[2018-04-03] MEDS: POTASSIUM CHLORIDE 100 ML IVPB (10:26)
[2018-04-03] MEDS: METHYLPREDNISOLONE 40 MG INJ IV ×2 (10:29→21:34)
[2018-04-03] MEDS: HEPARIN 5,000 UNIT/1 ML VIAL SC ×3 (10:35→21:48)
[2018-04-03] MEDS ORDERED: METOPROLOL 5 MG INJ IV (12:30)
[2018-04-03] MEDS ORDERED: HEPARIN 1000 UNITS/ML 10 ML INJ (14:24)
[2018-04-03] MEDS: HEPARIN 1000 UNITS/ML 10 ML INJ CATHETER (15:19)
[2018-04-03] MEDS: CEFEPIME 1GM/50 ML (PMX) 50 ML IVPB (15:23)
[2018-04-03] MEDS: NIFEdipine (XL) 60 MG TAB PO ×2 (15:24→21:37)
[2018-04-03] MEDS ORDERED: CEFEPIME 1GM/50 ML (PMX) 50 ML IVPB (21:00)
[2018-04-03] MEDS: METOPROLOL 25 MG TAB PO (21:37)
[2018-04-04 05:14] LABS: ADD MAN DIFF? NO
[2018-04-04 05:18] LABS: WHITE BLOOD COUNT 15.2 10^3/ul (4.8-10.8)
[2018-04-04 05:18] LABS: ABNORMAL IP MESSAGE 1; BASOPHILS % 0.1 % (0.0-2.0); HEMATOCRIT 28.7 % (37.0-47.0); HEMOGLOBIN 9.2 g/dl (12.0-16.0); LYMPHOCYTES # 0.6 10^3/ul (0.8-2.9); LYMPHOCYTES % 3.6 % (15.0-51.0); MEAN CORPUSCULAR HEMOGLOBIN 30.7 pg (29.0-33.0); MEAN CORPUSCULAR HGB CONC 32.1 g/dl (32.0-37.0); MEAN CORPUSCULAR VOLUME 95.7 fl (82.0-101.0); MEAN PLATELET VOLUME 10.4 fl (7.4-10.4); MONOCYTE # 0.3 10^3/ul (0.3-0.9); MONOCYTES % 2.2 % (0.0-11.0); NEUTROPHIL # 14.1 10^3/ul (1.6-7.5); NEUTROPHILS % 93.4 % (39.0-77.0); NUCLEATED RED BLOOD CELLS # 0.1 10^3/ul (0.0-0.0); NUCLEATED RED BLOOD CELLS% 0.5 /100WBC (0.0-0.0); PLATELET COUNT 133 10^3/UL (140-415); RED CELL DISTRIBUTION WIDTH 15.9 % (11.5-14.5)
[2018-04-04] MEDS: LEVOTHYROXINE 100 MCG VIAL IV (05:18)
[2018-04-04] MEDS: HEPARIN 5,000 UNIT/1 ML VIAL SC ×3 (05:34→21:24)
[2018-04-04 05:48] LABS: POSITIVE DIFF @See below
[2018-04-04 05:49] LABS: ANION GAP 8 (5-13); BLOOD UREA NITROGEN 57 mg/dl (7-20); CALCIUM 8.7 mg/dl (8.4-10.2); CARBON DIOXIDE 33 mmol/L (21-31); CHLORIDE 99 mmol/L (97-110); CREATININE 3.06 mg/dl (0.44-1.00); GLUCOSE 133 mg/dl (70-220); POTASSIUM 3.7 mmol/L (3.5-5.1); SODIUM 140 mmol/L (135-144)
[2018-04-04] MEDS: ALBUTEROL/IPRATROPIUM (NEB) 3 ML AMP HHN ×3 (08:03→21:36)
[2018-04-04 08:43] LABS: AADO2 Arterial 164.7 mmHg (7.0-24.0); Allen Test ACCEPTAB; Arterial Base Excess 7.5 mmol/L (-3.0-3); Arterial Blood Gas Oxygen Sat 95.4 mmHG (95.0-100.0); Arterial COHb 0.3 % (0.0-3.0); Arterial Fraction of Oxyhgb 94.8 % (93.0-99.0); Arterial HCO3 30.9 mmol/L (22.0-26.0); Arterial MetHb 0.3 % (0.0-1.5); Arterial pCO2 39.2 mmhg (35-45); Blood Gas IEPAP 20/8; Blood Gas PS 12; MODE MASK - BIPAP; Site Left Radial
[2018-04-04] MEDS: FUROSEMIDE 40 MG INJ IV (08:53)
[2018-04-04] MEDS: METHYLPREDNISOLONE 40 MG INJ IV (08:53)
[2018-04-04] MEDS ORDERED: ALBUMIN HUMAN 25% 100 ML (10:37)
[2018-04-04] MEDS: ALBUMIN HUMAN 25% 100 ML IV (12:29)
[2018-04-04] MEDS: HEPARIN 1000 UNITS/ML 10 ML INJ CATHETER (13:08)
[2018-04-04] MEDS: METOPROLOL 25 MG TAB PO ×2 (13:52→20:35)
[2018-04-04] MEDS: ACETAMINOPHEN 500 MG TAB PO ×2 (13:53→20:36)
[2018-04-04] MEDS: NIFEdipine (XL) 60 MG TAB PO ×2 (13:53→20:35)
[2018-04-04] MEDS: CEFEPIME 1GM/50 ML (PMX) 50 ML IVPB (13:53)
[2018-04-05] MEDS: HALOPERIDOL 5 MG INJ IV (03:21)
[2018-04-05] MEDS: ALBUTEROL/IPRATROPIUM (NEB) 3 ML AMP HHN ×4 (03:49→21:04)
[2018-04-05] MEDS: LEVOTHYROXINE 100 MCG VIAL IV (05:19)
[2018-04-05] MEDS: HEPARIN 5,000 UNIT/1 ML VIAL SC ×3 (05:42→20:37)
[2018-04-05 06:58] LABS: ADD MAN DIFF? NO
[2018-04-05 07:04] LABS: WHITE BLOOD COUNT 15.3 10^3/ul (4.8-10.8)
[2018-04-05 07:04] LABS: BASOPHILS % 0.2 % (0.0-2.0); EOSINOPHILS % 0.1 % (0.0-7.0); HEMOGLOBIN 7.4 g/dl (12.0-16.0); LYMPHOCYTES # 1.3 10^3/ul (0.8-2.9); LYMPHOCYTES % 8.4 % (15.0-51.0); MEAN CORPUSCULAR HEMOGLOBIN 30.8 pg (29.0-33.0); MEAN CORPUSCULAR HGB CONC 32.2 g/dl (32.0-37.0); MEAN CORPUSCULAR VOLUME 95.8 fl (82.0-101.0); MEAN PLATELET VOLUME 11.1 fl (7.4-10.4); MONOCYTE # 0.6 10^3/ul (0.3-0.9); MONOCYTES % 4.1 % (0.0-11.0); NEUTROPHIL # 13.2 10^3/ul (1.6-7.5); NEUTROPHILS % 86.2 % (39.0-77.0); NUCLEATED RED BLOOD CELLS # 0.1 10^3/ul (0.0-0.0); NUCLEATED RED BLOOD CELLS% 0.3 /100WBC (0.0-0.0); PLATELET COUNT 120 10^3/UL (140-415); RED CELL DISTRIBUTION WIDTH 15.8 % (11.5-14.5)
[2018-04-05 08:17] LABS: ANION GAP 7 (5-13); BLOOD UREA NITROGEN 74 mg/dl (7-20); CALCIUM 8.7 mg/dl (8.4-10.2); CARBON DIOXIDE 29 mmol/L (21-31); CHLORIDE 104 mmol/L (97-110); CREATININE 2.98 mg/dl (0.44-1.00); GLUCOSE 99 mg/dl (70-220); POTASSIUM 3.4 mmol/L (3.5-5.1); SODIUM 140 mmol/L (135-144)
[2018-04-05] MEDS: METOPROLOL 25 MG TAB PO ×2 (08:51→20:34)
[2018-04-05] MEDS: NIFEdipine (XL) 60 MG TAB PO ×2 (08:51→20:34)
[2018-04-05] MEDS: ALTEPLASE (CATHFLO) 2 MG INJ CATHETER (12:00)
[2018-04-05] MEDS: CEFEPIME 1GM/50 ML (PMX) 50 ML IVPB (12:29)
[2018-04-06 05:42] LABS: WHITE BLOOD COUNT 16.9 10^3/ul (4.8-10.8)
[2018-04-06 05:42] LABS: ABNORMAL IP MESSAGE 1; HEMATOCRIT 18.1 % (37.0-47.0); MEAN CORPUSCULAR VOLUME 96.8 fl (82.0-101.0); MEAN PLATELET VOLUME 11.4 fl (7.4-10.4); PLATELET COUNT 117 10^3/UL (140-415); RED BLOOD COUNT 1.87 10^6/ul (4.20-5.40); RED CELL DISTRIBUTION WIDTH 16.2 % (11.5-14.5)
[2018-04-06] MEDS: LEVOTHYROXINE 100 MCG VIAL IV (05:46)
[2018-04-06 05:51] LABS: POSITIVE DIFF @See below
[2018-04-06 05:52] LABS: HEMOGLOBIN 5.8 g/dl (12.0-16.0)
[2018-04-06 05:53] LABS: ADD MAN DIFF? YES
[2018-04-06] MEDS: HEPARIN 5,000 UNIT/1 ML VIAL SC (05:53)
[2018-04-06 06:04] LABS: ANION GAP 7 (5-13); BLOOD UREA NITROGEN 92 mg/dl (7-20); CALCIUM 8.2 mg/dl (8.4-10.2); CARBON DIOXIDE 28 mmol/L (21-31); CHLORIDE 105 mmol/L (97-110); CREATININE 3.36 mg/dl (0.44-1.00); GLUCOSE 95 mg/dl (70-220); POTASSIUM 3.6 mmol/L (3.5-5.1); SODIUM 140 mmol/L (135-144)
[2018-04-06 07:20] LABS: ABNORMAL IP MESSAGE 1; MEAN CORPUSCULAR HEMOGLOBIN 30.5 pg (29.0-33.0); MEAN CORPUSCULAR HGB CONC 31.7 g/dl (32.0-37.0); MEAN CORPUSCULAR VOLUME 96.3 fl (82.0-101.0); MEAN PLATELET VOLUME 11.1 fl (7.4-10.4); PLATELET COUNT 111 10^3/UL (140-415); RED BLOOD COUNT 1.87 10^6/ul (4.20-5.40); RED CELL DISTRIBUTION WIDTH 16.1 % (11.5-14.5)
[2018-04-06 07:20] LABS: WHITE BLOOD COUNT 16.6 10^3/ul (4.8-10.8)
[2018-04-06 07:28] LABS: HEMOGLOBIN 5.7 g/dl (12.0-16.0); POSITIVE DIFF @See below
[2018-04-06 07:29] LABS: ADD MAN DIFF? YES; PATH REVIEW? YES
[2018-04-06 07:31] LABS: ANISOCYTOSIS 1+ (0-0); BAND NEUTROPHILS #M 0.3 10^3/ul (0.0-0.6); BAND NEUTROPHILS % (M) 2 % (0-4); LYMPHOCYTES #M 0.5 10^3/ul (0.8-2.9); LYMPHOCYTES % (M) 3 % (15-51); MONOCYTE #M 0.1 10^3/ul (0.3-0.9); MONOCYTES % (M) 1 % (0-11); MYELOCYTES #M 0.3 10^3/ul (0.0-0.0); MYELOCYTES % (M) 2 % (0-0); OVALOCYTES 1+ (0-0); PLATELET ESTIMATE DECREASED; SEG NEUT #M 15.6 10^3/ul (1.6-7.5); SEGMENTED NEUTROPHILS (M) % 92 % (39-77); SMUDGE%M 4 % (0-0); TOXIC GRANULATION 1+ (0-0)
[2018-04-06] MEDS: EPOETIN 10000 UNITS/1 ML INJ (ESRD) SC (08:15)
[2018-04-06] MEDS: METOPROLOL 25 MG TAB PO ×2 (08:15→20:42)
[2018-04-06 08:23] LABS: ANISOCYTOSIS 1+ (0-0); BAND NEUTROPHILS #M 0.6 10^3/ul (0.0-0.6); BAND NEUTROPHILS % (M) 4 % (0-4); EOSINOPHILS % (M) 1 % (0-7); ERYTHROBLAST% (NRBC) (M) 1 % (0-0); HYPOCHROMASIA 1+ (0-0); LYMPHOCYTES #M 1.1 10^3/ul (0.8-2.9); LYMPHOCYTES % (M) 7 % (15-51); MONOCYTE #M 0.1 10^3/ul (0.3-0.9); MONOCYTES % (M) 1 % (0-11); MYELOCYTES #M 0.1 10^3/ul (0.0-0.0); MYELOCYTES % (M) 1 % (0-0); PLATELET ESTIMATE DECREASED; POIKILOCYTOSIS 1+ (0-0); POLYCHROMASIA 1+ (0-0); SEG NEUT #M 14.4 10^3/ul (1.6-7.5); SEGMENTED NEUTROPHILS (M) % 86 % (39-77); SMUDGE%M 1 % (0-0)
[2018-04-06] MEDS: ALBUTEROL/IPRATROPIUM (NEB) 3 ML AMP HHN ×3 (08:52→20:30)
[2018-04-06] MEDS: NIFEdipine (XL) 60 MG TAB PO ×2 (09:00→20:38)
[2018-04-06 11:12] LABS: OCCULT BLOOD STOOL POSITIVE (NEGATIVE)
[2018-04-06] MEDS: ACETAMINOPHEN 500 MG TAB PO (12:15)
[2018-04-06] MEDS: SOD CHLORIDE 0.9% 250 ML IV* (16:45)
[2018-04-06 18:46] LABS: IMMEDIATE SPIN CROSSMATCH 1 5
[2018-04-07] MEDS ORDERED: VITAMIN A & D 5 GM OINT PACKET TOP (04:45)
[2018-04-07] MEDS: LEVOTHYROXINE 100 MCG VIAL IV (05:26)
[2018-04-07] MEDS: PANTOPRAZOLE 40 MG INJ IV ×3 (05:26→22:22)
[2018-04-07 05:50] LABS: WHITE BLOOD COUNT 14.9 10^3/ul (4.8-10.8)
[2018-04-07 05:50] LABS: ABNORMAL IP MESSAGE 1; ADD MAN DIFF? NO; BASOPHILS % 0.1 % (0.0-2.0); EOSINOPHILS # 0.1 10^3/ul (0.0-0.5); EOSINOPHILS % 0.6 % (0.0-7.0); HEMATOCRIT 19.1 % (37.0-47.0); LYMPHOCYTES # 0.7 10^3/ul (0.8-2.9); LYMPHOCYTES % 4.4 % (15.0-51.0); MEAN CORPUSCULAR HEMOGLOBIN 30.6 pg (29.0-33.0); MEAN CORPUSCULAR VOLUME 92.7 fl (82.0-101.0); MONOCYTE # 0.4 10^3/ul (0.3-0.9); MONOCYTES % 2.6 % (0.0-11.0); NEUTROPHIL # 13.5 10^3/ul (1.6-7.5); NEUTROPHILS % 90.8 % (39.0-77.0); PLATELET COUNT 134 10^3/UL (140-415); RED BLOOD COUNT 2.06 10^6/ul (4.20-5.40); RED CELL DISTRIBUTION WIDTH 15.9 % (11.5-14.5)
[2018-04-07] MEDS ORDERED: PANTOPRAZOLE 40 MG INJ IV (06:00)
[2018-04-07 06:03] LABS: POSITIVE DIFF @See below
[2018-04-07 06:05] LABS: HEMOGLOBIN 6.3 g/dl (12.0-16.0)
[2018-04-07 06:13] LABS: ANION GAP 10 (5-13); BLOOD UREA NITROGEN 108 mg/dl (7-20); CALCIUM 8.2 mg/dl (8.4-10.2); CARBON DIOXIDE 24 mmol/L (21-31); CHLORIDE 105 mmol/L (97-110); CREATININE 3.86 mg/dl (0.44-1.00); GLUCOSE 157 mg/dl (70-220); SODIUM 139 mmol/L (135-144)
[2018-04-07 06:32] LABS: POTASSIUM 3.4 mmol/L (3.5-5.1)
[2018-04-07] MEDS: ALBUTEROL/IPRATROPIUM (NEB) 3 ML AMP HHN ×3 (08:00→20:22)
[2018-04-07] MEDS: METOPROLOL 25 MG TAB PO ×2 (09:00→21:00)
[2018-04-07] MEDS: NIFEdipine (XL) 60 MG TAB PO ×2 (09:00→21:00)
[2018-04-07 12:10] LABS: HEMATOCRIT 19.4 % (37.0-47.0)
[2018-04-07 12:17] LABS: HEMOGLOBIN 6.5 g/dl (12.0-16.0)
[2018-04-07] MEDS: POTASSIUM CHLORIDE (SR) 20 MEQ TAB PO (17:17)
[2018-04-07 18:44] LABS: HEMATOCRIT 18.4 % (37.0-47.0)
[2018-04-07] MEDS ORDERED: BISACODYL (EC) 5 MG TAB PO (20:00)
[2018-04-07] MEDS ORDERED: PEG/ELECTROLYTES 4L BTL PO (20:00)
[2018-04-08] MEDS: HEPARIN 1000 UNITS/ML 10 ML INJ CATHETER ×2 (01:27→13:24)
[2018-04-08] MEDS: LEVOTHYROXINE 100 MCG VIAL IV (05:32)
[2018-04-08 06:06] LABS: ADD MAN DIFF? NO
[2018-04-08 06:10] LABS: BASOPHILS % 0.1 % (0.0-2.0); EOSINOPHILS # 0.1 10^3/ul (0.0-0.5); EOSINOPHILS % 0.5 % (0.0-7.0); HEMATOCRIT 27.7 % (37.0-47.0); HEMOGLOBIN 9.4 g/dl (12.0-16.0); LYMPHOCYTES # 0.7 10^3/ul (0.8-2.9); LYMPHOCYTES % 5.2 % (15.0-51.0); MEAN CORPUSCULAR HEMOGLOBIN 29.5 pg (29.0-33.0); MEAN CORPUSCULAR HGB CONC 33.9 g/dl (32.0-37.0); MEAN CORPUSCULAR VOLUME 86.8 fl (82.0-101.0); MEAN PLATELET VOLUME 11.3 fl (7.4-10.4); MONOCYTE # 1.1 10^3/ul (0.3-0.9); MONOCYTES % 7.8 % (0.0-11.0); NEUTROPHIL # 11.9 10^3/ul (1.6-7.5); NEUTROPHILS % 85.2 % (39.0-77.0); PLATELET COUNT 134 10^3/UL (140-415); RED BLOOD COUNT 3.19 10^6/ul (4.20-5.40); RED CELL DISTRIBUTION WIDTH 15.9 % (11.5-14.5)
[2018-04-08 06:10] LABS: WHITE BLOOD COUNT 13.9 10^3/ul (4.8-10.8)
[2018-04-08 06:44] LABS: ANION GAP 9 (5-13); BLOOD UREA NITROGEN 58 mg/dl (7-20); CALCIUM 8.4 mg/dl (8.4-10.2); CARBON DIOXIDE 27 mmol/L (21-31); CHLORIDE 102 mmol/L (97-110); GLUCOSE 166 mg/dl (70-220); POTASSIUM 3.3 mmol/L (3.5-5.1); SODIUM 138 mmol/L (135-144)
[2018-04-08] MEDS: PANTOPRAZOLE 40 MG INJ IV ×2 (08:30→20:26)
[2018-04-08] MEDS: METOPROLOL 25 MG TAB PO ×2 (08:32→20:31)
[2018-04-08] MEDS: NIFEdipine (XL) 60 MG TAB PO (08:32)
[2018-04-08] MEDS: ALBUTEROL/IPRATROPIUM (NEB) 3 ML AMP HHN ×3 (08:34→20:04)
[2018-04-08] MEDS ORDERED: ALBUMIN HUMAN 25% 100 ML IV (11:05)
[2018-04-08] MEDS: ALBUMIN HUMAN 25% 50 ML IV (12:07)
[2018-04-08 14:38] LABS: HEMATOCRIT 31.6 % (37.0-47.0); HEMOGLOBIN 10.6 g/dl (12.0-16.0)
[2018-04-08 20:01] LABS: HEMOGLOBIN 10.1 g/dl (12.0-16.0)
[2018-04-08] MEDS: NIFEdipine (XL) 30 MG TAB PO (20:30)
[2018-04-09] MEDS: LEVOTHYROXINE 100 MCG VIAL IV (05:31)
[2018-04-09 06:11] LABS: ADD MAN DIFF? NO
[2018-04-09 06:20] LABS: WHITE BLOOD COUNT 9.8 10^3/ul (4.8-10.8)
[2018-04-09 06:20] LABS: BASOPHILS % 0.2 % (0.0-2.0); EOSINOPHILS # 0.1 10^3/ul (0.0-0.5); HEMATOCRIT 29.1 % (37.0-47.0); HEMOGLOBIN 9.5 g/dl (12.0-16.0); LYMPHOCYTES # 0.9 10^3/ul (0.8-2.9); LYMPHOCYTES % 8.9 % (15.0-51.0); MEAN CORPUSCULAR HEMOGLOBIN 29.1 pg (29.0-33.0); MEAN CORPUSCULAR HGB CONC 32.6 g/dl (32.0-37.0); MEAN PLATELET VOLUME 10.3 fl (7.4-10.4); MONOCYTE # 1.4 10^3/ul (0.3-0.9); MONOCYTES % 13.8 % (0.0-11.0); NEUTROPHIL # 7.4 10^3/ul (1.6-7.5); NEUTROPHILS % 75.1 % (39.0-77.0); PLATELET COUNT 156 10^3/UL (140-415); RED BLOOD COUNT 3.27 10^6/ul (4.20-5.40); RED CELL DISTRIBUTION WIDTH 16.1 % (11.5-14.5)
[2018-04-09 06:41] LABS: INR 0.92; PROTIME 12.5 Sec (11.9-14.9)
[2018-04-09 06:42] LABS: PARTIAL THROMBOPLASTIN TIME 31.4 Sec (23.0-35.0)
[2018-04-09 07:07] LABS: ANION GAP 9 (5-13); BLOOD UREA NITROGEN 43 mg/dl (7-20); CALCIUM 8.7 mg/dl (8.4-10.2); CARBON DIOXIDE 29 mmol/L (21-31); CHLORIDE 99 mmol/L (97-110); CREATININE 3.41 mg/dl (0.44-1.00); GLUCOSE 116 mg/dl (70-220); POTASSIUM 3.6 mmol/L (3.5-5.1); SODIUM 137 mmol/L (135-144)
[2018-04-09] MEDS: PANTOPRAZOLE 40 MG INJ IV ×2 (08:09→20:28)
[2018-04-09] MEDS: METOPROLOL 25 MG TAB PO ×2 (08:09→20:28)
[2018-04-09] MEDS: NIFEdipine (XL) 30 MG TAB PO (08:10)
[2018-04-09] MEDS: ALBUTEROL/IPRATROPIUM (NEB) 3 ML AMP HHN ×3 (08:53→20:50)
[2018-04-09 12:36] LABS: HEMATOCRIT 30.5 % (37.0-47.0); HEMOGLOBIN 10.1 g/dl (12.0-16.0)
[2018-04-09] MEDS: BISACODYL (EC) 5 MG TAB PO (16:46)
[2018-04-09] MEDS: PEG/ELECTROLYTES 4L BTL PO (16:47)
[2018-04-09 19:01] LABS: HEMATOCRIT 30.8 % (37.0-47.0); HEMOGLOBIN 10.2 g/dl (12.0-16.0)
[2018-04-10 05:35] LABS: ADD MAN DIFF? NO
[2018-04-10 05:39] LABS: BASOPHILS % 0.1 % (0.0-2.0); EOSINOPHILS # 0.1 10^3/ul (0.0-0.5); HEMATOCRIT 28.3 % (37.0-47.0); HEMOGLOBIN 9.5 g/dl (12.0-16.0); LYMPHOCYTES % 12.2 % (15.0-51.0); MEAN CORPUSCULAR HEMOGLOBIN 29.4 pg (29.0-33.0); MEAN CORPUSCULAR HGB CONC 33.6 g/dl (32.0-37.0); MEAN CORPUSCULAR VOLUME 87.6 fl (82.0-101.0); MEAN PLATELET VOLUME 9.9 fl (7.4-10.4); MONOCYTE # 1.1 10^3/ul (0.3-0.9); MONOCYTES % 14.2 % (0.0-11.0); NEUTROPHIL # 5.7 10^3/ul (1.6-7.5); NEUTROPHILS % 71.5 % (39.0-77.0); PLATELET COUNT 175 10^3/UL (140-415); RED BLOOD COUNT 3.23 10^6/ul (4.20-5.40); RED CELL DISTRIBUTION WIDTH 16.2 % (11.5-14.5)
[2018-04-10 05:39] LABS: WHITE BLOOD COUNT 7.9 10^3/ul (4.8-10.8)
[2018-04-10] MEDS: LEVOTHYROXINE 100 MCG VIAL IV (06:02)
[2018-04-10 06:04] LABS: ANION GAP 13 (5-13); BLOOD UREA NITROGEN 62 mg/dl (7-20); CARBON DIOXIDE 26 mmol/L (21-31); CHLORIDE 99 mmol/L (97-110); CREATININE 4.93 mg/dl (0.44-1.00); GLUCOSE 112 mg/dl (70-220); POTASSIUM 3.6 mmol/L (3.5-5.1); SODIUM 138 mmol/L (135-144)
[2018-04-10 06:05] LABS: CALCIUM 8.6 mg/dl (8.4-10.2)
[2018-04-10] MEDS: ALBUTEROL/IPRATROPIUM (NEB) 3 ML AMP HHN ×3 (08:42→20:11)
[2018-04-10] MEDS: NIFEdipine (XL) 30 MG TAB PO (09:00)
[2018-04-10] MEDS: METOPROLOL 25 MG TAB PO ×3 (09:00→22:45)
[2018-04-10] MEDS: PANTOPRAZOLE 40 MG INJ IV (09:40)
[2018-04-10] MEDS: DIGOXIN 500 MCG INJ IV (11:06)
[2018-04-10] MEDS: morphine SULFATE/PF (2 MG/2 ML) SYG IV (11:29)
[2018-04-10] MEDS ORDERED: ONDANSETRON 4 MG INJ IV (13:00)
[2018-04-10 14:56] LABS: HEMATOCRIT 30.5 % (37.0-47.0); HEMOGLOBIN 9.9 g/dl (12.0-16.0)
[2018-04-10] MEDS: PANTOPRAZOLE (EC) 40 MG TAB PO (18:02)
[2018-04-10 19:40] LABS: HEMATOCRIT 29.8 % (37.0-47.0); HEMOGLOBIN 9.9 g/dl (12.0-16.0)
[2018-04-10] MEDS: ACETAMINOPHEN 500 MG TAB PO (22:43)
[2018-04-11] MEDS: ALTEPLASE (CATHFLO) 2 MG INJ CATHETER (03:19)
[2018-04-11 06:10] LABS: ADD MAN DIFF? NO
[2018-04-11 06:13] LABS: WHITE BLOOD COUNT 6.9 10^3/ul (4.8-10.8)
[2018-04-11 06:13] LABS: BASOPHILS % 0.3 % (0.0-2.0); EOSINOPHILS # 0.1 10^3/ul (0.0-0.5); EOSINOPHILS % 1.6 % (0.0-7.0); HEMATOCRIT 26.1 % (37.0-47.0); HEMOGLOBIN 8.6 g/dl (12.0-16.0); MEAN CORPUSCULAR HEMOGLOBIN 29.6 pg (29.0-33.0); MEAN CORPUSCULAR VOLUME 89.7 fl (82.0-101.0); MEAN PLATELET VOLUME 9.9 fl (7.4-10.4); MONOCYTE # 0.9 10^3/ul (0.3-0.9); MONOCYTES % 12.4 % (0.0-11.0); NEUTROPHIL # 4.9 10^3/ul (1.6-7.5); NEUTROPHILS % 70.8 % (39.0-77.0); PLATELET COUNT 187 10^3/UL (140-415); RED BLOOD COUNT 2.91 10^6/ul (4.20-5.40); RED CELL DISTRIBUTION WIDTH 16.4 % (11.5-14.5)
[2018-04-11] MEDS: LEVOTHYROXINE 150 MCG TAB PO (06:29)
[2018-04-11] MEDS: PANTOPRAZOLE (EC) 40 MG TAB PO ×2 (06:29→18:00)
[2018-04-11 06:39] LABS: ANION GAP 16 (5-13); BLOOD UREA NITROGEN 72 mg/dl (7-20); CALCIUM 8.7 mg/dl (8.4-10.2); CARBON DIOXIDE 25 mmol/L (21-31); CHLORIDE 99 mmol/L (97-110); CREATININE 6.08 mg/dl (0.44-1.00); GLUCOSE 106 mg/dl (70-220); POTASSIUM 4.6 mmol/L (3.5-5.1); SODIUM 140 mmol/L (135-144)
[2018-04-11] MEDS: NIFEdipine (XL) 30 MG TAB PO (08:04)
[2018-04-11] MEDS: METOPROLOL 25 MG TAB PO ×2 (08:05→21:19)
[2018-04-11] MEDS: ALBUTEROL/IPRATROPIUM (NEB) 3 ML AMP HHN ×3 (08:30→20:00)
[2018-04-11] MEDS: HEPARIN 1000 UNITS/ML 10 ML INJ (09:37)
[2018-04-11] MEDS: LIDOCAINE 1% (MPF) 30 ML INJ (09:38)
[2018-04-11] MEDS ORDERED: MIDAZOLAM 1 MG/ML 2 ML INJ (10:32)
[2018-04-11] MEDS ORDERED: FENTAnyl 50 MCG/ML VIAL (10:32)
[2018-04-11] MEDS: SODIUM CL BACTERIOSTATIC 30 ML INJ (11:40)
[2018-04-11] MEDS ORDERED: CEFAZOLIN 1 GM INJ (11:54)
[2018-04-11] MEDS ORDERED: HYDROmorphONE 1 MG/5 ML IV SYRINGE IV (12:30)
[2018-04-11] MEDS ORDERED: DIPHENHYDRAMINE 50 MG INJ IV (12:30)
[2018-04-11] MEDS ORDERED: FENTAnyl 50 MCG/ML VIAL IV (12:30)
[2018-04-11] MEDS: HEPARIN 1000 UNITS/ML 10 ML INJ CATHETER (18:29)
[2018-04-11] MEDS: ACETAMINOPHEN 500 MG TAB PO (21:19)
[2018-04-12] MEDS: PANTOPRAZOLE (EC) 40 MG TAB PO (05:18)
[2018-04-12] MEDS: LEVOTHYROXINE 150 MCG TAB PO (05:18)
[2018-04-12 06:06] LABS: ADD MAN DIFF? NO
[2018-04-12 06:10] LABS: BASOPHILS % 0.3 % (0.0-2.0); EOSINOPHILS # 0.2 10^3/ul (0.0-0.5); EOSINOPHILS % 2.5 % (0.0-7.0); HEMATOCRIT 28.1 % (37.0-47.0); HEMOGLOBIN 9.1 g/dl (12.0-16.0); LYMPHOCYTES # 0.7 10^3/ul (0.8-2.9); LYMPHOCYTES % 11.1 % (15.0-51.0); MEAN CORPUSCULAR HEMOGLOBIN 29.4 pg (29.0-33.0); MEAN CORPUSCULAR HGB CONC 32.4 g/dl (32.0-37.0); MEAN CORPUSCULAR VOLUME 90.9 fl (82.0-101.0); MEAN PLATELET VOLUME 9.8 fl (7.4-10.4); MONOCYTE # 0.7 10^3/ul (0.3-0.9); MONOCYTES % 10.6 % (0.0-11.0); NEUTROPHIL # 4.9 10^3/ul (1.6-7.5); NEUTROPHILS % 74.7 % (39.0-77.0); PLATELET COUNT 177 10^3/UL (140-415); RED BLOOD COUNT 3.09 10^6/ul (4.20-5.40); RED CELL DISTRIBUTION WIDTH 16.4 % (11.5-14.5)
[2018-04-12 06:10] LABS: WHITE BLOOD COUNT 6.5 10^3/ul (4.8-10.8)
[2018-04-12 06:24] LABS: ANION GAP 9 (5-13); BLOOD UREA NITROGEN 32 mg/dl (7-20); CALCIUM 8.8 mg/dl (8.4-10.2); CARBON DIOXIDE 29 mmol/L (21-31); CHLORIDE 100 mmol/L (97-110); CREATININE 3.54 mg/dl (0.44-1.00); GLUCOSE 104 mg/dl (70-220); POTASSIUM 4.3 mmol/L (3.5-5.1); SODIUM 138 mmol/L (135-144)
[2018-04-12] MEDS: ALBUTEROL/IPRATROPIUM (NEB) 3 ML AMP HHN ×3 (08:14→19:53)
[2018-04-12] MEDS: PROPOFOL 20 ML (08:24)
[2018-04-12] MEDS: FENTAnyl 50 MCG/ML VIAL (08:26)
[2018-04-12] MEDS: PHENYLephrine (100 MCG/ML) 5ML SYG (08:27)
[2018-04-12] MEDS: NIFEdipine (XL) 30 MG TAB PO (09:28)
[2018-04-12] MEDS: METOPROLOL 25 MG TAB PO ×2 (09:29→21:57)
[2018-04-12] MEDS: NYSTATIN SUSP 5 ML CUP PO ×3 (13:35→21:57)
[2018-04-12] MEDS: ACETAMINOPHEN 500 MG TAB PO (21:58)
[2018-04-12] MEDS: GABAPENTIN 300 MG CAP PO (21:58)
[2018-04-12] MEDS: FLUCONAZOLE 100 MG/50 ML (PMX) 50 ML IVPB (22:05)
[2018-04-13] MEDS: PANTOPRAZOLE (EC) 40 MG TAB PO (05:22)
[2018-04-13] MEDS: LEVOTHYROXINE 150 MCG TAB PO (05:22)
[2018-04-13 05:39] LABS: ADD MAN DIFF? NO
[2018-04-13 05:47] LABS: BASOPHILS % 0.3 % (0.0-2.0); EOSINOPHILS # 0.2 10^3/ul (0.0-0.5); EOSINOPHILS % 2.5 % (0.0-7.0); HEMOGLOBIN 8.6 g/dl (12.0-16.0); LYMPHOCYTES # 0.8 10^3/ul (0.8-2.9); LYMPHOCYTES % 13.3 % (15.0-51.0); MEAN CORPUSCULAR HEMOGLOBIN 29.2 pg (29.0-33.0); MEAN CORPUSCULAR HGB CONC 31.9 g/dl (32.0-37.0); MEAN CORPUSCULAR VOLUME 91.5 fl (82.0-101.0); MEAN PLATELET VOLUME 9.4 fl (7.4-10.4); MONOCYTE # 0.6 10^3/ul (0.3-0.9); MONOCYTES % 9.6 % (0.0-11.0); NEUTROPHIL # 4.4 10^3/ul (1.6-7.5); NEUTROPHILS % 73.5 % (39.0-77.0); PLATELET COUNT 176 10^3/UL (140-415); RED BLOOD COUNT 2.95 10^6/ul (4.20-5.40); RED CELL DISTRIBUTION WIDTH 16.4 % (11.5-14.5)
[2018-04-13 06:06] LABS: ANION GAP 11 (5-13); BLOOD UREA NITROGEN 46 mg/dl (7-20); CALCIUM 8.4 mg/dl (8.4-10.2); CARBON DIOXIDE 26 mmol/L (21-31); CHLORIDE 98 mmol/L (97-110); CREATININE 4.64 mg/dl (0.44-1.00); GLUCOSE 98 mg/dl (70-220); POTASSIUM 4.5 mmol/L (3.5-5.1); SODIUM 135 mmol/L (135-144)
[2018-04-13] MEDS: ALBUTEROL/IPRATROPIUM (NEB) 3 ML AMP HHN ×3 (08:00→20:43)
[2018-04-13] MEDS: NYSTATIN SUSP 5 ML CUP PO ×4 (08:03→20:38)
[2018-04-13] MEDS: METOPROLOL 25 MG TAB PO ×2 (08:06→20:39)
[2018-04-13] MEDS: NIFEdipine (XL) 30 MG TAB PO (08:07)
[2018-04-13] MEDS ORDERED: ASPIRIN (EC) 81 MG TAB PO (09:00)
[2018-04-13] MEDS: ALBUMIN HUMAN 25% 50 ML IV (10:46)
[2018-04-13] MEDS: HEPARIN 1000 UNITS/ML 10 ML INJ CATHETER (13:01)
[2018-04-13] MEDS: FLUCONAZOLE 100 MG/50 ML (PMX) 50 ML IVPB (16:56)
[2018-04-13] MEDS: GABAPENTIN 300 MG CAP PO (20:38)
[2018-04-13] MEDS: ACETAMINOPHEN 500 MG TAB PO (20:39)
[2018-04-13] MEDS: NYSTATIN 30 GM POWDER BTL TOP (20:40)
[2018-04-14] MEDS: PANTOPRAZOLE (EC) 40 MG TAB PO (05:44)
[2018-04-14] MEDS: LEVOTHYROXINE 150 MCG TAB PO (05:44)
[2018-04-14] MEDS: ALBUTEROL/IPRATROPIUM (NEB) 3 ML AMP HHN ×3 (08:03→21:11)
[2018-04-14] MEDS: NYSTATIN SUSP 5 ML CUP PO ×4 (08:32→21:19)
[2018-04-14] MEDS: NIFEdipine (XL) 30 MG TAB PO ×2 (08:33→08:35)
[2018-04-14] MEDS: METOPROLOL 25 MG TAB PO ×3 (08:34→21:20)
[2018-04-14] MEDS: NYSTATIN 30 GM POWDER BTL TOP ×2 (08:36→21:19)
[2018-04-14] MEDS ORDERED: CLOPIDOGREL 75 MG TAB GTB (09:00)
[2018-04-14] MEDS: FLUCONAZOLE 100 MG/50 ML (PMX) 50 ML IVPB (16:56)
[2018-04-14] MEDS: GABAPENTIN 300 MG CAP PO (21:19)
[2018-04-14] MEDS: PROMETHAZINE/CODEINE 5ML CUP PO (22:44)
[2018-04-15] MEDS: LEVOTHYROXINE 150 MCG TAB PO (06:00)
[2018-04-15] MEDS: PANTOPRAZOLE (EC) 40 MG TAB PO (06:00)
[2018-04-15] MEDS: ALBUTEROL/IPRATROPIUM (NEB) 3 ML AMP HHN ×3 (07:47→20:20)
[2018-04-15] MEDS: NYSTATIN SUSP 5 ML CUP PO ×3 (08:30→17:47)
[2018-04-15] MEDS: METOPROLOL 25 MG TAB PO ×2 (08:30→21:00)
[2018-04-15] MEDS: NIFEdipine (XL) 30 MG TAB PO (08:31)
[2018-04-15] MEDS: FLUCONAZOLE 100 MG TAB PO (08:31)
[2018-04-15] MEDS: NYSTATIN 30 GM POWDER BTL TOP (08:32)
[2018-04-15] MEDS: PROMETHAZINE/CODEINE 5ML CUP PO (08:34)
[2018-04-15] MEDS: ALBUMIN HUMAN 25% 50 ML IV (22:30)
[2018-04-15] MEDS: HEPARIN 1000 UNITS/ML 10 ML INJ CATHETER (23:58)
[2018-04-16] MEDS: NYSTATIN SUSP 5 ML CUP PO ×5 (00:21→20:54)
[2018-04-16] MEDS: GABAPENTIN 300 MG CAP PO ×2 (00:23→20:54)
[2018-04-16] MEDS: NYSTATIN 30 GM POWDER BTL TOP ×3 (00:24→20:55)
[2018-04-16] MEDS: DIPHENHYDRAMINE 25 MG CAP PO (02:33)
[2018-04-16] MEDS: LEVOTHYROXINE 150 MCG TAB PO (05:27)
[2018-04-16] MEDS: PANTOPRAZOLE (EC) 40 MG TAB PO (05:28)
[2018-04-16] MEDS: NIFEdipine (XL) 30 MG TAB PO (08:03)
[2018-04-16] MEDS: FLUCONAZOLE 100 MG TAB PO (08:03)
[2018-04-16] MEDS: METOPROLOL 25 MG TAB PO ×2 (08:04→20:55)
[2018-04-16] MEDS: ALBUTEROL/IPRATROPIUM (NEB) 3 ML AMP HHN ×3 (08:13→19:34)
[2018-04-16] MEDS: BISACODYL (EC) 5 MG TAB PO (11:30)
[2018-04-17 05:46] LABS: ADD MAN DIFF? NO
[2018-04-17 05:49] LABS: BASOPHILS % 0.7 % (0.0-2.0); EOSINOPHILS # 0.2 10^3/ul (0.0-0.5); EOSINOPHILS % 3.4 % (0.0-7.0); HEMATOCRIT 25.9 % (37.0-47.0); HEMOGLOBIN 8.2 g/dl (12.0-16.0); LYMPHOCYTES # 1.4 10^3/ul (0.8-2.9); LYMPHOCYTES % 22.4 % (15.0-51.0); MEAN CORPUSCULAR HEMOGLOBIN 29.6 pg (29.0-33.0); MEAN CORPUSCULAR HGB CONC 31.7 g/dl (32.0-37.0); MEAN CORPUSCULAR VOLUME 93.5 fl (82.0-101.0); MEAN PLATELET VOLUME 9.4 fl (7.4-10.4); MONOCYTE # 0.6 10^3/ul (0.3-0.9); MONOCYTES % 10.5 % (0.0-11.0); NEUTROPHIL # 3.8 10^3/ul (1.6-7.5); NEUTROPHILS % 61.7 % (39.0-77.0); PLATELET COUNT 224 10^3/UL (140-415); RED BLOOD COUNT 2.77 10^6/ul (4.20-5.40); RED CELL DISTRIBUTION WIDTH 16.3 % (11.5-14.5)
[2018-04-17 05:49] LABS: WHITE BLOOD COUNT 6.1 10^3/ul (4.8-10.8)
[2018-04-17] MEDS: PANTOPRAZOLE (EC) 40 MG TAB PO (05:49)
[2018-04-17] MEDS: LEVOTHYROXINE 150 MCG TAB PO (05:49)
[2018-04-17 06:20] LABS: ALANINE AMINOTRANSFERASE 18 IU/L (13-69); ALBUMIN 3.4 g/dl (3.3-4.9); ALBUMIN/GLOBULIN RATIO 1.21; ALKALINE PHOSPHATASE 92 IU/L (42-121); ANION GAP 10 (5-13); ASPARTATE AMINO TRANSFERASE 22 IU/L (15-46); BILIRUBIN,INDIRECT 0.2 mg/dl (0-1.1); BILIRUBIN,TOTAL 0.2 mg/dl (0.2-1.3); BLOOD UREA NITROGEN 38 mg/dl (7-20); CALCIUM 9.1 mg/dl (8.4-10.2); CARBON DIOXIDE 28 mmol/L (21-31); CHLORIDE 99 mmol/L (97-110); CREATININE 4.06 mg/dl (0.44-1.00); GLUCOSE 112 mg/dl (70-220); POTASSIUM 4.4 mmol/L (3.5-5.1); SODIUM 137 mmol/L (135-144); TOTAL PROTEIN 6.2 g/dl (6.1-8.1)
[2018-04-17] MEDS: NIFEdipine (XL) 30 MG TAB PO ×2 (08:14→09:00)
[2018-04-17] MEDS: NYSTATIN SUSP 5 ML CUP PO ×4 (08:14→20:36)
[2018-04-17] MEDS: FLUCONAZOLE 100 MG TAB PO (08:14)
[2018-04-17] MEDS: NYSTATIN 30 GM POWDER BTL TOP ×2 (08:14→20:38)
[2018-04-17] MEDS: METOPROLOL 25 MG TAB PO ×3 (08:14→20:37)
[2018-04-17] MEDS: POLYETHYLENE GLYCOL 17 GM PACKET PO (08:14)
[2018-04-17] MEDS: ALBUTEROL/IPRATROPIUM (NEB) 3 ML AMP HHN ×3 (09:19→22:41)
[2018-04-17] MEDS: GABAPENTIN 300 MG CAP PO (20:36)
[2018-04-18] MEDS: PANTOPRAZOLE (EC) 40 MG TAB PO (05:02)
[2018-04-18] MEDS: LEVOTHYROXINE 150 MCG TAB PO (05:02)
[2018-04-18 05:39] LABS: ADD MAN DIFF? NO
[2018-04-18 05:50] LABS: WHITE BLOOD COUNT 5.8 10^3/ul (4.8-10.8)
[2018-04-18 05:50] LABS: BASOPHIL # 0.1 10^3/ul (0.0-0.1); BASOPHILS % 0.9 % (0.0-2.0); EOSINOPHILS # 0.2 10^3/ul (0.0-0.5); EOSINOPHILS % 3.8 % (0.0-7.0); HEMATOCRIT 26.1 % (37.0-47.0); HEMOGLOBIN 8.2 g/dl (12.0-16.0); LYMPHOCYTES # 1.5 10^3/ul (0.8-2.9); LYMPHOCYTES % 25.9 % (15.0-51.0); MEAN CORPUSCULAR HEMOGLOBIN 29.3 pg (29.0-33.0); MEAN CORPUSCULAR HGB CONC 31.4 g/dl (32.0-37.0); MEAN CORPUSCULAR VOLUME 93.2 fl (82.0-101.0); MEAN PLATELET VOLUME 9.5 fl (7.4-10.4); MONOCYTE # 0.7 10^3/ul (0.3-0.9); MONOCYTES % 11.2 % (0.0-11.0); NEUTROPHIL # 3.3 10^3/ul (1.6-7.5); PLATELET COUNT 253 10^3/UL (140-415)
[2018-04-18 06:29] LABS: ANION GAP 10 (5-13); BLOOD UREA NITROGEN 52 mg/dl (7-20); CALCIUM 9.3 mg/dl (8.4-10.2); CARBON DIOXIDE 25 mmol/L (21-31); CHLORIDE 102 mmol/L (97-110); CREATININE 4.98 mg/dl (0.44-1.00); GLUCOSE 100 mg/dl (70-220); POTASSIUM 4.9 mmol/L (3.5-5.1); SODIUM 137 mmol/L (135-144)
[2018-04-18] MEDS: ALBUTEROL/IPRATROPIUM (NEB) 3 ML AMP HHN ×3 (08:24→20:08)
[2018-04-18] MEDS: NIFEdipine (XL) 30 MG TAB PO (09:00)
[2018-04-18] MEDS: METOPROLOL 25 MG TAB PO ×2 (09:00→21:09)
[2018-04-18] MEDS: FLUCONAZOLE 100 MG TAB PO (09:21)
[2018-04-18] MEDS: POLYETHYLENE GLYCOL 17 GM PACKET PO (09:22)
[2018-04-18] MEDS: NYSTATIN SUSP 5 ML CUP PO ×4 (09:22→21:09)
[2018-04-18] MEDS: NYSTATIN 30 GM POWDER BTL TOP ×2 (09:26→21:09)
[2018-04-18] MEDS: HEPARIN 1000 UNITS/ML 10 ML INJ CATHETER (18:31)
[2018-04-18] MEDS: GABAPENTIN 300 MG CAP PO (21:08)
[2018-04-18] MEDS: ACETAMINOPHEN 500 MG TAB PO (21:08)
[2018-04-18] MEDS: PROMETHAZINE/CODEINE 5ML CUP PO (21:09)
[2018-04-18] MEDS ORDERED: VITAMIN A & D 5 GM OINT PACKET TOP (21:17)
[2018-04-19] MEDS: LEVOTHYROXINE 150 MCG TAB PO (05:21)
[2018-04-19] MEDS: PANTOPRAZOLE (EC) 40 MG TAB PO (05:21)
[2018-04-19 05:38] LABS: ADD MAN DIFF? NO
[2018-04-19 06:09] LABS: ANION GAP 13 (5-13); BLOOD UREA NITROGEN 31 mg/dl (7-20); CALCIUM 9.5 mg/dl (8.4-10.2); CARBON DIOXIDE 26 mmol/L (21-31); CHLORIDE 99 mmol/L (97-110); CREATININE 3.37 mg/dl (0.44-1.00); GLUCOSE 93 mg/dl (70-220); POTASSIUM 5.1 mmol/L (3.5-5.1); SODIUM 138 mmol/L (135-144)
[2018-04-19 06:25] LABS: BASOPHIL # 0.1 10^3/ul (0.0-0.1); BASOPHILS % 0.9 % (0.0-2.0); EOSINOPHILS # 0.2 10^3/ul (0.0-0.5); EOSINOPHILS % 3.7 % (0.0-7.0); HEMATOCRIT 27.4 % (37.0-47.0); HEMOGLOBIN 8.7 g/dl (12.0-16.0); LYMPHOCYTES # 1.6 10^3/ul (0.8-2.9); MEAN CORPUSCULAR HEMOGLOBIN 29.3 pg (29.0-33.0); MEAN CORPUSCULAR HGB CONC 31.8 g/dl (32.0-37.0); MEAN CORPUSCULAR VOLUME 92.3 fl (82.0-101.0); MEAN PLATELET VOLUME 9.1 fl (7.4-10.4); MONOCYTE # 0.7 10^3/ul (0.3-0.9); MONOCYTES % 10.7 % (0.0-11.0); NEUTROPHIL # 3.7 10^3/ul (1.6-7.5); NEUTROPHILS % 57.7 % (39.0-77.0); PLATELET COUNT 243 10^3/UL (140-415); RED BLOOD COUNT 2.97 10^6/ul (4.20-5.40); RED CELL DISTRIBUTION WIDTH 15.9 % (11.5-14.5)
[2018-04-19 06:25] LABS: WHITE BLOOD COUNT 6.5 10^3/ul (4.8-10.8)
[2018-04-19] MEDS: POLYETHYLENE GLYCOL 17 GM PACKET PO (08:16)
[2018-04-19] MEDS: NYSTATIN SUSP 5 ML CUP PO ×2 (08:16→12:50)
[2018-04-19] MEDS: METOPROLOL 25 MG TAB PO (08:17)
[2018-04-19] MEDS: FLUCONAZOLE 100 MG TAB PO (08:17)
[2018-04-19] MEDS: NIFEdipine (XL) 30 MG TAB PO (08:17)
[2018-04-19] MEDS: NYSTATIN 30 GM POWDER BTL TOP (08:18)
[2018-04-19] MEDS: ALBUTEROL/IPRATROPIUM (NEB) 3 ML AMP HHN ×2 (08:47→13:57)
[2018-04-20] MEDS ORDERED: CLOPIDOGREL 75 MG TAB PO (09:00)
== END 2018-04-19 16:50 | DRG 871 ==
LOC: ICU 17:12 → 6WM 04-01 17:27 → E/R 17:08
PROC: 06HY33Z Insertion of Infusion Device into Lower Vein, Percutaneous Approach (ICD-10-PCS; principal; 2018-04-10 12:00)
PROC: 02HV33Z Insertion of Infusion Device into Superior Vena Cava, Percutaneous Approach (ICD-10-PCS; 2018-04-10 12:00)
PROC: 5A1D70Z Performance of Urinary Filtration, Intermittent, Less than 6 Hours Per Day (ICD-10-PCS; 2018-04-10 12:00)
PROC: 06HY33Z Insertion of Infusion Device into Lower Vein, Percutaneous Approach (ICD-10-PCS; 2018-04-10 12:00)
PROC: 0DB58ZX Excision of Esophagus, Via Natural or Artificial Opening Endoscopic, Diagnostic (ICD-10-PCS; 2018-04-10 12:00)
PROC: 0DBH8ZZ Excision of Cecum, Via Natural or Artificial Opening Endoscopic (ICD-10-PCS; 2018-04-10 12:00)
PROC: 0JH63XZ Insertion of Tunneled Vascular Access Device into Chest Subcutaneous Tissue and Fascia, Percutaneous Approach (ICD-10-PCS; 2018-04-10 12:00)
PROC: 02H633Z Insertion of Infusion Device into Right Atrium, Percutaneous Approach (ICD-10-PCS; 2018-04-10 12:00)
PROC: B214YZZ Fluoroscopy of Right Heart using Other Contrast (ICD-10-PCS; 2018-04-10 12:00)
PROC: 06PYX3Z Removal of Infusion Device from Lower Vein, External Approach (ICD-10-PCS; 2018-04-10 12:00)
PROC: 30233N1 Transfusion of Nonautologous Red Blood Cells into Peripheral Vein, Percutaneous Approach (ICD-10-PCS; 2018-04-10 12:00)
DX: A41.9 Sepsis, unspecified organism (principal); N17.0 Acute kidney failure with tubular necrosis; R65.21 Severe sepsis with septic shock; G93.41 Metabolic encephalopathy; I50.43 Acute on chronic combined systolic (congestive) and diastolic (congestive) heart failure; J96.01 Acute respiratory failure with hypoxia; J18.9 Pneumonia, unspecified organism; R57.0 Cardiogenic shock; K29.61 Other gastritis with bleeding; K29.81 Duodenitis with bleeding; K57.31 Diverticulosis of large intestine without perforation or abscess with bleeding; I13.0 Hypertensive heart and chronic kidney disease with heart failure and stage 1 through stage 4 chronic kidney disease, or unspecified chronic kidney disease; E87.2 Acidosis; E87.1 Hypo-osmolality and hyponatremia; N39.0 Urinary tract infection, site not specified; D62 Acute posthemorrhagic anemia; B37.81 Candidal esophagitis; T82.9XXA Unspecified complication of cardiac and vascular prosthetic device, implant and graft, initial encounter; D63.1 Anemia in chronic kidney disease; D12.0 Benign neoplasm of cecum; E87.5 Hyperkalemia; E03.9 Hypothyroidism, unspecified; I25.10 Atherosclerotic heart disease of native coronary artery without angina pectoris; J44.9 Chronic obstructive pulmonary disease, unspecified; K64.4 Residual hemorrhoidal skin tags; K44.9 Diaphragmatic hernia without obstruction or gangrene; L30.4 Erythema intertrigo; N18.3 Chronic kidney disease, stage 3 (moderate); B96.1 Klebsiella pneumoniae [K. pneumoniae] as the cause of diseases classified elsewhere; B96.4 Proteus (mirabilis) (morganii) as the cause of diseases classified elsewhere; Z66 Do not resuscitate
CPT/HCPCS: 36415; 36430; 36569; 36600; 71045; 76775; 76937; 80048; 80053; 80202; 81001; 81003; 82270; 82570; 82607; 82803; 82962; 83605; 83880; 84300; 84439; 84443; 84484; 84560; 85014; 85018; 85025; 85610; 85730; 86703; 86704; 86709; 86803; 86850; 86900; 86901; 86920; 87040; 87081; 87086; 87340; 87400; 88305; 88313; 89190; 90935; 92526; 92610; 93005; 93970; 94640; 94660; 94664; 99291-25

== ENCOUNTER 2018-05-05 08:09 | Inpatient (IN) | payer MEDICARE, OTHER ==
[2018-05-05] MEDS ORDERED: ACETAMINOPHEN 325 MG TAB PO (08:30)
[2018-05-05] MEDS ORDERED: ONDANSETRON 4 MG INJ IV (08:30)
[2018-05-05 08:33] LABS: ADD MAN DIFF? NO
[2018-05-05 08:38] LABS: BASOPHIL # 0.1 10^3/ul (0.0-0.1); BASOPHILS % 0.4 % (0.0-2.0); EOSINOPHILS # 0.5 10^3/ul (0.0-0.5); EOSINOPHILS % 4.5 % (0.0-7.0); HEMATOCRIT 23.5 % (37.0-47.0); HEMOGLOBIN 7.4 g/dl (12.0-16.0); LYMPHOCYTES # 2.3 10^3/ul (0.8-2.9); LYMPHOCYTES % 18.9 % (15.0-51.0); MEAN CORPUSCULAR HEMOGLOBIN 29.8 pg (29.0-33.0); MEAN CORPUSCULAR HGB CONC 31.5 g/dl (32.0-37.0); MEAN CORPUSCULAR VOLUME 94.8 fl (82.0-101.0); MEAN PLATELET VOLUME 10.2 fl (7.4-10.4); MONOCYTE # 1.2 10^3/ul (0.3-0.9); NEUTROPHIL # 7.8 10^3/ul (1.6-7.5); NEUTROPHILS % 65.2 % (39.0-77.0); PLATELET COUNT 106 10^3/UL (140-415); RED BLOOD COUNT 2.48 10^6/ul (4.20-5.40); RED CELL DISTRIBUTION WIDTH 16.5 % (11.5-14.5)
[2018-05-05 08:38] LABS: WHITE BLOOD COUNT 11.9 10^3/ul (4.8-10.8)
[2018-05-05 08:57] LABS: ALANINE AMINOTRANSFERASE 17 IU/L (13-69); ALBUMIN 3.6 g/dl (3.3-4.9); ALBUMIN/GLOBULIN RATIO 1.16; ALKALINE PHOSPHATASE 99 IU/L (42-121); ANION GAP 6 (5-13); ASPARTATE AMINO TRANSFERASE 24 IU/L (15-46); BILIRUBIN,INDIRECT 0.2 mg/dl (0-1.1); BILIRUBIN,TOTAL 0.2 mg/dl (0.2-1.3); BLOOD UREA NITROGEN 33 mg/dl (7-20); CALCIUM 9.1 mg/dl (8.4-10.2); CARBON DIOXIDE 30 mmol/L (21-31); CHLORIDE 105 mmol/L (97-110); CREATININE 3.62 mg/dl (0.44-1.00); GLUCOSE 102 mg/dl (70-220); POTASSIUM 3.7 mmol/L (3.5-5.1); SODIUM 141 mmol/L (135-144); TOTAL PROTEIN 6.7 g/dl (6.1-8.1)
[2018-05-05 09:02] LABS: INR 2.15; PARTIAL THROMBOPLASTIN TIME 29.8 Sec (23.0-35.0); PROTIME 24.1 Sec (11.9-14.9); PT RATIO 1.9
[2018-05-05] MEDS: SOD CHLORIDE 0.9% 0 ML IV (09:05)
[2018-05-05 09:08] LABS: TROPONIN-I 0.021 ng/ml (0.000-0.120)
[2018-05-05 10:56] LABS: IMMEDIATE SPIN CROSSMATCH 1 2
[2018-05-05] MEDS ORDERED: SOD CHLORIDE 0.9% 250 ML IV* (12:24)
[2018-05-05] MEDS ORDERED: SODIUM CHLORIDE 0.9% 1L BAG IV (12:30)
[2018-05-05] MEDS ORDERED: ALBUMIN HUMAN 25% 50 ML IV (12:30)
[2018-05-05] MEDS ORDERED: HEPARIN 1000 UNITS/ML 10 ML INJ CATHETER (12:30)
[2018-05-05] MEDS ORDERED: GUAIFENESIN/DM 5ML CUP PO (18:00)
[2018-05-05] MEDS ORDERED: ALBUTEROL/IPRATROPIUM (NEB) 3 ML AMP INH (18:00)
[2018-05-05] MEDS: ATORVASTATIN 10 MG TAB PO (20:38)
[2018-05-05] MEDS: DOCUSATE SODIUM 100 MG CAP PO (20:38)
[2018-05-05] MEDS: GABAPENTIN 300 MG CAP PO (20:38)
[2018-05-05] MEDS: METOPROLOL 25 MG TAB PO (20:39)
[2018-05-05] MEDS ORDERED: NON-FORMULARY/PATIENT OWN MED (Protein Supplement (Promod) 30 ML) PO (21:00)
[2018-05-06 01:34] LABS: CREATINE KINASE 76 IU/L (23-200)
[2018-05-06 01:45] LABS: ADD UMIC YES; CK INDEX 1.2; TROPONIN-I 0.016 ng/ml (0.000-0.120); UR AMORPHOUS CRYSTAL FEW /HPF (NONE SEEN); UR ASCORBIC ACID 20 mg/dL (NEGATIVE); UR BACTERIA FEW /HPF (NONE SEEN); UR BILIRUBIN (Dip) NEGATIVE (NEGATIVE); UR BLOOD (Dip) 1+ mg/dL (NEGATIVE); UR CLARITY TURBID (CLEAR); UR COLOR YELLOW (YELLOW); UR GLUCOSE (Dip) NEGATIVE (NEGATIVE); UR KETONES (Dip) TRACE mg/dL (NEGATIVE); UR LEUKOCYTE ESTERASE (Dip) 2+ Leu/ul (NEGATIVE); UR MUCUS MANY /HPF (NONE SEEN); UR NITRITE (Dip) NEGATIVE (NEGATIVE); UR RBC 23 /HPF (0-5); UR SPECIFIC GRAVITY (Dip) 1.012 (1.003-1.030); UR SQUAMOUS EPITHELIAL CELL FEW /HPF (FEW); UR TOTAL PROTEIN (Dip) 2+ mg/dl (NEGATIVE); UR UROBILINOGEN (Dip) 2+ mg/dL (NEGATIVE); UR WBC > 182 /HPF (0-5)
[2018-05-06 05:29] LABS: ADD MAN DIFF? NO
[2018-05-06 05:33] LABS: BASOPHIL # 0.1 10^3/ul (0.0-0.1); BASOPHILS % 0.5 % (0.0-2.0); EOSINOPHILS # 0.5 10^3/ul (0.0-0.5); EOSINOPHILS % 5.7 % (0.0-7.0); HEMATOCRIT 25.1 % (37.0-47.0); LYMPHOCYTES # 2.1 10^3/ul (0.8-2.9); LYMPHOCYTES % 22.4 % (15.0-51.0); MEAN CORPUSCULAR HEMOGLOBIN 30.5 pg (29.0-33.0); MEAN CORPUSCULAR HGB CONC 31.9 g/dl (32.0-37.0); MEAN CORPUSCULAR VOLUME 95.8 fl (82.0-101.0); MEAN PLATELET VOLUME 10.1 fl (7.4-10.4); MONOCYTES % 10.9 % (0.0-11.0); NEUTROPHIL # 5.6 10^3/ul (1.6-7.5); NEUTROPHILS % 59.8 % (39.0-77.0); PLATELET COUNT 109 10^3/UL (140-415); RED BLOOD COUNT 2.62 10^6/ul (4.20-5.40); RED CELL DISTRIBUTION WIDTH 15.9 % (11.5-14.5)
[2018-05-06 05:33] LABS: WHITE BLOOD COUNT 9.4 10^3/ul (4.8-10.8)
[2018-05-06 05:54] LABS: INR 0.99; PROTIME 13.2 Sec (11.9-14.9)
[2018-05-06 05:58] LABS: CREATINE KINASE 67 IU/L (23-200)
[2018-05-06 06:02] LABS: CK INDEX 1.9; CK-MB 1.26 ng/ml (0.0-2.4); TROPONIN-I < 0.012 ng/ml (0.000-0.120)
[2018-05-06 06:06] LABS: ANION GAP 9 (5-13); BLOOD UREA NITROGEN 43 mg/dl (7-20); CALCIUM 8.7 mg/dl (8.4-10.2); CARBON DIOXIDE 27 mmol/L (21-31); CHLORIDE 107 mmol/L (97-110); CREATININE 4.03 mg/dl (0.44-1.00); GLUCOSE 81 mg/dl (70-220); POTASSIUM 4.1 mmol/L (3.5-5.1); SODIUM 143 mmol/L (135-144)
[2018-05-06 06:20] LABS: PHOSPHORUS 4.8 mg/dl (2.5-4.9)
[2018-05-06] MEDS: LEVOTHYROXINE 150 MCG TAB PO (06:28)
[2018-05-06] MEDS: PANTOPRAZOLE (EC) 40 MG TAB PO (06:29)
[2018-05-06] MEDS ORDERED: SODIUM CHLORIDE 0.9% 1L BAG IV (07:00)
[2018-05-06] MEDS: METOPROLOL 25 MG TAB PO ×2 (09:00→20:05)
[2018-05-06] MEDS: NIFEdipine (XL) 30 MG TAB PO (09:00)
[2018-05-06 12:50] LABS: HEPATITIS B SURFACE ANTIGEN NEGATIVE (NEGATIVE)
[2018-05-06 12:51] LABS: CREATINE KINASE 68 IU/L (23-200)
[2018-05-06 13:03] LABS: CK INDEX 2.1; CK-MB 1.42 ng/ml (0.0-2.4); TROPONIN-I < 0.012 ng/ml (0.000-0.120)
[2018-05-06] MEDS: HEPARIN 1000 UNITS/ML 10 ML INJ CATHETER (13:28)
[2018-05-06] MEDS: GABAPENTIN 300 MG CAP PO ×2 (14:21→20:03)
[2018-05-06] MEDS: POLYETHYLENE GLYCOL 17 GM PACKET PO (14:23)
[2018-05-06] MEDS: MULTIVIT/CA CARB/B CMPLX/FA TAB PO (14:23)
[2018-05-06] MEDS: CLOPIDOGREL 75 MG TAB PO (14:24)
[2018-05-06] MEDS: DOCUSATE SODIUM 100 MG CAP PO ×2 (14:24→20:03)
[2018-05-06] MEDS: ACETAMINOPHEN 500 MG TAB PO ×2 (15:46→20:51)
[2018-05-06 15:57] LABS: OCCULT BLOOD STOOL NEGATIVE (NEGATIVE)
[2018-05-06] MEDS: EPOETIN 3000 UNITS/1 ML INJ (ESRD) SC (16:45)
[2018-05-06] MEDS: ATORVASTATIN 10 MG TAB PO (20:03)
[2018-05-06] MEDS: DIPHENHYDRAMINE 25 MG CAP PO (20:52)
[2018-05-07] MEDS: PANTOPRAZOLE (EC) 40 MG TAB PO (06:59)
[2018-05-07] MEDS: LEVOTHYROXINE 150 MCG TAB PO (06:59)
[2018-05-07] MEDS: GABAPENTIN 300 MG CAP PO ×2 (07:01→21:02)
[2018-05-07] MEDS: DOCUSATE SODIUM 100 MG CAP PO ×2 (08:34→21:02)
[2018-05-07] MEDS: MULTIVIT/CA CARB/B CMPLX/FA TAB PO (08:34)
[2018-05-07] MEDS: METOPROLOL 25 MG TAB PO ×2 (08:35→21:03)
[2018-05-07] MEDS: POLYETHYLENE GLYCOL 17 GM PACKET PO (08:35)
[2018-05-07] MEDS: CLOPIDOGREL 75 MG TAB PO (08:35)
[2018-05-07] MEDS: NIFEdipine (XL) 30 MG TAB PO (08:35)
[2018-05-07] MEDS: ATORVASTATIN 10 MG TAB PO (21:03)
[2018-05-07] MEDS: DIPHENHYDRAMINE 25 MG CAP PO (22:19)
[2018-05-07] MEDS: ACETAMINOPHEN 500 MG TAB PO (22:19)
[2018-05-08] MEDS: PANTOPRAZOLE (EC) 40 MG TAB PO (06:57)
[2018-05-08] MEDS: LEVOTHYROXINE 150 MCG TAB PO (06:57)
[2018-05-08] MEDS: MULTIVIT/CA CARB/B CMPLX/FA TAB PO (09:13)
[2018-05-08] MEDS: POLYETHYLENE GLYCOL 17 GM PACKET PO (09:13)
[2018-05-08] MEDS: METOPROLOL 25 MG TAB PO ×2 (09:14→20:53)
[2018-05-08] MEDS: NIFEdipine (XL) 30 MG TAB PO (09:14)
[2018-05-08] MEDS: CLOPIDOGREL 75 MG TAB PO (09:14)
[2018-05-08] MEDS: GABAPENTIN 300 MG CAP PO ×2 (09:14→20:53)
[2018-05-08] MEDS: DOCUSATE SODIUM 100 MG CAP PO ×2 (09:14→20:52)
[2018-05-08] MEDS: ATORVASTATIN 10 MG TAB PO (20:52)
[2018-05-08] MEDS: DIPHENHYDRAMINE 25 MG CAP PO (22:22)
[2018-05-08] MEDS: ACETAMINOPHEN 500 MG TAB PO (22:22)
[2018-05-09 05:29] LABS: ADD MAN DIFF? NO
[2018-05-09 05:45] LABS: BASOPHIL # 0.1 10^3/ul (0.0-0.1); BASOPHILS % 0.6 % (0.0-2.0); EOSINOPHILS # 0.6 10^3/ul (0.0-0.5); EOSINOPHILS % 7.1 % (0.0-7.0); HEMATOCRIT 33.7 % (37.0-47.0); HEMOGLOBIN 10.8 g/dl (12.0-16.0); LYMPHOCYTES # 2.1 10^3/ul (0.8-2.9); LYMPHOCYTES % 23.4 % (15.0-51.0); MEAN CORPUSCULAR HEMOGLOBIN 30.8 pg (29.0-33.0); MEAN PLATELET VOLUME 9.2 fl (7.4-10.4); MONOCYTE # 0.8 10^3/ul (0.3-0.9); MONOCYTES % 9.2 % (0.0-11.0); NEUTROPHIL # 5.4 10^3/ul (1.6-7.5); NEUTROPHILS % 59.1 % (39.0-77.0); PLATELET COUNT 175 10^3/UL (140-415); RED BLOOD COUNT 3.51 10^6/ul (4.20-5.40); RED CELL DISTRIBUTION WIDTH 15.4 % (11.5-14.5)
[2018-05-09 06:11] LABS: ANION GAP 11 (5-13); BLOOD UREA NITROGEN 42 mg/dl (7-20); CALCIUM 9.5 mg/dl (8.4-10.2); CARBON DIOXIDE 23 mmol/L (21-31); CHLORIDE 112 mmol/L (97-110); CREATININE 4.71 mg/dl (0.44-1.00); GLUCOSE 99 mg/dl (70-220); POTASSIUM 4.5 mmol/L (3.5-5.1); SODIUM 146 mmol/L (135-144)
[2018-05-09] MEDS: LEVOTHYROXINE 150 MCG TAB PO (06:55)
[2018-05-09] MEDS: PANTOPRAZOLE (EC) 40 MG TAB PO (06:55)
[2018-05-09] MEDS: POLYETHYLENE GLYCOL 17 GM PACKET PO (09:30)
[2018-05-09] MEDS: DOCUSATE SODIUM 100 MG CAP PO (09:30)
[2018-05-09] MEDS: CLOPIDOGREL 75 MG TAB PO (09:30)
[2018-05-09] MEDS: MULTIVIT/CA CARB/B CMPLX/FA TAB PO (09:30)
[2018-05-09] MEDS: GABAPENTIN 300 MG CAP PO (09:30)
[2018-05-09] MEDS: METOPROLOL 25 MG TAB PO (09:31)
[2018-05-09] MEDS: NIFEdipine (XL) 30 MG TAB PO (09:31)
[2018-05-09] MEDS: HEPARIN 1000 UNITS/ML 10 ML INJ CATHETER (11:18)
[2018-05-09] MEDS: EPOETIN 3000 UNITS/1 ML INJ (ESRD) SC (17:14)
== END 2018-05-09 17:35 | DRG 291 ==
LOC: E/R 08:09 → MS1 08:14
PROC: 30233N1 Transfusion of Nonautologous Red Blood Cells into Peripheral Vein, Percutaneous Approach (ICD-10-PCS; 2018-05-05)
PROC: 5A1D70Z Performance of Urinary Filtration, Intermittent, Less than 6 Hours Per Day (ICD-10-PCS; principal; 2018-05-06)
DX: I13.2 Hypertensive heart and chronic kidney disease with heart failure and with stage 5 chronic kidney disease, or end stage renal disease (principal); N18.6 End stage renal disease; I50.33 Acute on chronic diastolic (congestive) heart failure; D68.9 Coagulation defect, unspecified; D63.1 Anemia in chronic kidney disease; G62.9 Polyneuropathy, unspecified; G25.81 Restless legs syndrome; I25.10 Atherosclerotic heart disease of native coronary artery without angina pectoris; I48.0 Paroxysmal atrial fibrillation; E03.9 Hypothyroidism, unspecified; D69.6 Thrombocytopenia, unspecified; J44.9 Chronic obstructive pulmonary disease, unspecified; E78.00 Pure hypercholesterolemia, unspecified; Z66 Do not resuscitate; M10.9 Gout, unspecified; I08.0 Rheumatic disorders of both mitral and aortic valves; Z79.02 Long term (current) use of antithrombotics/antiplatelets; Z87.01 Personal history of pneumonia (recurrent); Z99.2 Dependence on renal dialysis; Z79.82 Long term (current) use of aspirin; Z90.49 Acquired absence of other specified parts of digestive tract
CPT/HCPCS: 36415; 36430; 71045; 80048; 80053; 81001; 82270; 82550; 82553; 83735; 84100; 84484; 85025; 85610; 85730; 86644; 86850; 86900; 86901; 86920; 87340; 90935; 93005; 99291-25